=== PATIENT | male | born 1975 ===

== ENCOUNTER 2016-12-19 17:25 | Emergency (ER) | payer MEDICAID ==
[2016-12-19 17:26] VITALS: BMI 27.8
[2016-12-19 17:59] VITALS: RESP 20
[2016-12-19] MEDS ORDERED: Sodium Chloride 0.9% 1,000 ML IV ONE (19:35)
--- NOTE | 2016-12-19 19:38 | C.PDOC ---
History Of Present Illness 41 year old male with a history of recurring pancreatitis, presents to the ED with complaints of upper abdominal pain for the past few days. Patient states he was seen in [facility] a week ago for the same complaints and notes he was admitted several months ago for his pancreatitis. He has no other complaints at this time. Time Seen by Provider: 12/19/16 19:29 Chief Complaint (Nursing): Abdominal Pain History Per: Patient History/Exam Limitations: no limitations Onset/Duration Of Symptoms: Days Current Symptoms Are (Timing): Still Present Severity: Mild Radiation Of Pain To:: None Quality Of Discomfort: "Pain" Associated Symptoms: denies: Fever, Nausea, Vomiting Past Medical History Reviewed: Historical Data, Nursing Documentation, Vital Signs Vital Signs: Last Vital Signs Temp 98.7 F 12/19/16 17:56 Pulse 93 H 12/19/16 17:56 Resp 20 12/19/16 17:56 BP 132/93 H 12/19/16 17:56 Pulse Ox 97 12/19/16 22:41 - Medical History PMH: Asthma, Back Problems, Gall Bladder Disease, Pancreatitis, Rheumatoid Arthritis Surgical History: Cholecystectomy, Endoscopy - [facility] Procedures EXCISION OF STOMACH, ENDO, DIAGN (10/28/15) Family History: States: Unknown Family Hx - Social History Hx Tobacco Use: No Hx Alcohol Use: No Hx Substance Use: Yes (GLADSI KATTY Q OTHER WEEK.) - Immunization History Hx Tetanus Toxoid Vaccination: No Hx Influenza Vaccination: Yes Hx Pneumococcal Vaccination: Yes Review Of Systems Except As Marked, All Systems Reviewed And Found Negative. Constitutional: Negative for: Fever, Chills Cardiovascular: Negative for: Chest Pain Respiratory: Negative for: Shortness of Breath Gastrointestinal: Positive for: Abdominal Pain. Negative for: Nausea, Vomiting , Diarrhea Genitourinary: Negative for: Dysuria Physical Exam - Physical Exam Appears: Non-toxic, No Acute Distress Skin: Normal Color, Warm, Dry Head: Atraumatic, Normacephalic Eye(s): bilateral: Normal Inspection Oral Mucosa: Moist Chest: Symmetrical, No Deformity Cardiovascular: Rhythm Regular Respiratory: Normal Breath Sounds, No Accessory Muscle Use Gastrointestinal/Abdominal: Soft, Tenderness (+Mild epigastric tenderness), No Distention, No Guarding, No Rebound Extremity: Normal ROM Neurological/Psych: Oriented x3, Normal Speech, Normal Cognition ED Course And Treatment - Laboratory Results Result Diagrams: 12/19/16 19:54 12/19/16 19:54 O2 Sat by Pulse Oximetry: 97 (Room air) Pulse Ox Interpretation: Normal Medical Decision Making Medical Decision Making: Plan: -Blood work -Urinalysis -Toradol -Zofran -IV fluids -Reassess Progress: pt reassessed. ct neg for pancreatitis, shows enterocolitis. labs unremarkable. pt on phon ein nad. stable for dc 1100: case discussed with gi fellow, covering [place]. agrees with outpt f/u Disposition - Disposition Disposition: HOME/ ROUTINE Disposition Time: 22:39 Condition: STABLE Additional Instructions: please followu pw ith your doctor. return to er with worsening symptoms or concerns. Prescriptions: Ciprofloxacin [Cipro] 500 mg PO BID #14 tab metroNIDAZOLE [Flagyl] 500 mg PO TID #21 tab Instructions: Acute Abdominal Pain (ED), Colitis (ED) - Clinical Impression Clinical Impression: Abdominal pain, Colitis - Scribe Statement The provider has reviewed the documentation as recorded by the Scribe Arnol Eller. Provider Attestation: All medical record entries made by the Anthonyibjacky were at my direction and personally dictated by me. I have reviewed the chart and agree that the record accurately reflects my personal performance of the history, physical exam, medical decision making, and the department course for this patient. I have also personally directed, reviewed, and agree with the discharge instructions and disposition.
[2016-12-19] MEDS ORDERED: Sodium Chloride 0.9% 1,000 ML ONE (19:55)
[2016-12-19 20:01] LABS: BASO # 0.1 K/uL (0.0-0.2); BASO % 0.7 % (0.0-2.0); EOS # 0.3 K/uL (0.0-0.7); EOS % 2.6 % (0.0-4.0); HEMATOCRIT 48.6 % (35.0-51.0); LYMPH # 2.2 K/uL (1.0-4.3); MEAN CELL VOLUME 92.8 fL (80.0-94.0); MEAN CORPUSCULAR HEMOGLOBIN 30.4 pg (27.0-31.0); MEAN CORPUSCULAR HGB CONC 32.7 g/dL (33.0-37.0); MEAN PLATELET VOLUME 7.8 fL (7.2-11.7); MONO # 0.5 K/uL (0.0-0.8); MONO % 5.2 % (0.0-10.0); NRBC % 0.1 % (0.0-2.0); RED CELL DISTRIBUTION WIDTH 14.2 % (11.5-14.5); WHITE BLOOD COUNT 10.2 K/uL (4.8-10.8)
[2016-12-19 20:07] LABS: CHLORIDE 97 mmol/L (98-107); POTASSIUM 4.1 mmol/L (3.6-5.2); SODIUM 141 mmol/L (132-148)
[2016-12-19 20:09] LABS: ALB/GLOB RATIO 1.2 (1.0-2.1); ALKALINE PHOSPHATASE 79 U/L (38-126); AST/SGOT 25 U/L (17-59); BILIRUBIN,TOTAL 0.6 mg/dL (0.2-1.3); CARBON DIOXIDE 27 mmol/L (22-30); GFR AFRICAN-AMERICAN > 60
[2016-12-19 20:10] LABS: ALT/SGPT 24 U/L (21-72); BLOOD UREA NITROGEN 11 mg/dL (9-20); CALCIUM 9.3 mg/dl (8.6-10.4); GLUCOSE,RANDOM 74 mg/dL (75-110)
[2016-12-19] MEDS ORDERED: Iodixanol 320 MG/ML 100 ML BOTTLE IV ONE ×2 (20:51→21:42)
[2016-12-19 21:49] LABS: RBC URINE 1 /hpf (0-3); TRANSITIONAL EPITHIAL < 1 /hpf (0-3); URINE BACTERIA RARE (<OCC); URINE BILIRUBIN NEGATIVE (NEGATIVE); URINE BLOOD NEGATIVE (NEGATIVE); URINE COLOR Yellow (YELLOW); URINE GLUCOSE (UA) NORMAL (Normal); URINE KETONE TRACE mg/dL (NEGATIVE); URINE LEUKOCYTE ESTERASE NEG Leu/uL (Negative); URINE PROTEIN NEGATIVE (NEGATIVE); URINE UROBILINOGEN NORMAL mg/dL (0.2-1.0); WBC URINE 1 /hpf (0-5)
--- NOTE | 2016-12-19 22:33 | CT ---
EXAM: CT Abdomen and Pelvis With Intravenous Contrast. CLINICAL HISTORY: 41 years old, male; Pain and signs and symptoms; Vomiting; Abdominal pain; Flank; Upper; Additional info: Upper abd pain h/o of pancreatitis TECHNIQUE: Axial computed tomography images of the abdomen and pelvis with intravenous contrast. This CT exam was performed using one or more of the following dose reduction techniques: automated exposure control, adjustment of the mA and/or kV according to patient size, and/or use of iterative reconstruction technique. Coronal and sagittal reformatted images were created and reviewed. CONTRAST: 100 mL of VISIPAQUE 320 administered intravenously. EXAM DATE/TIME: 12/19/2016 8:15 PM COMPARISON: CT - CHEST,ABD,PEL W/IV CONT ONLY 12/03/2015 5:40:48 PM FINDINGS: Lower thorax: Heart size is normal. There is a hiatal hernia. Lung bases are clear There is a small hiatal hernia. ABDOMEN: Liver: unremarkable Gallbladder and bile ducts: Gallbladder is surgically absent. Common bile duct is unremarkable. Pancreas: There is a pancreatic stent. Pancreatic duct is decompressed. No discrete pancreatic masses are identified. There is no peripancreatic inflammation. Spleen: unremarkable Adrenals: unremarkable Kidneys and ureters: There is a left renal cyst.Kidneys and ureters are otherwise unremarkable. Stomach and bowel: Stomach is partially distended with air-fluid levels. Rotation is normal. Proximal and mid small bowel mildly dilated and fluid-filled. There is scattered air fluid levels. There is mild wall and fold thickening. Distention decreases distally. There is fluid in distal small bowel. Terminal ileum is unremarkable. Appendix is unremarkable.Colon is incompletely distended which limits evaluation. There is transverse colon and splenic flexure wall thickening Appendix: See above. PELVIS: Bladder: Bladder is almost completely empty. Reproductive: Seminal vesicles and prostate are unremarkable. ABDOMEN and PELVIS: Intraperitoneal space: There is trace free fluid. There is no free air. Bones/joints: There are degenerative changes in the osseus structures. There is mild wedging T9, T10 and T11, unchanged. Soft tissues: unremarkable Vasculature: There are vascular calcifications. Lymph nodes: There is no pathologic adenopathy. IMPRESSION: Cholecystectomy, no ductal dilatation; pancreatic stent with no pancreatic ductal dilatation; enterocolitis; trace fluid in the pelvis
[2016-12-19 23:34] VITALS: BP 132/70; PULSE 90; TEMP 97.8; O2SAT 98
== END 2016-12-19 23:33 | disposition home or self-care (01) ==
LOC: C.ER 17:25
DX: K52.9 Noninfective gastroenteritis and colitis, unspecified (principal)
CPT/HCPCS: 74177; 80053; 81001; 83690; 85025; 85610; 85730; 96361; 96374; 96375; 99285; J1885; J2405; J7040; Q9967

== ENCOUNTER 2016-12-25 17:11 | Emergency (ER) | payer MEDICAID ==
[2016-12-25 17:11] VITALS: BMI 27.8
[2016-12-25 17:36] VITALS: PULSE 62; RESP 18
[2016-12-25] MEDS ORDERED: Sodium Chloride 0.9% 1,000 ML IV ONE (19:46)
--- NOTE | 2016-12-25 19:54 | C.PDOC ---
History Of Present Illness 41 y/o male presents to the ED with complains of epigastric pain. Pt was referred to ED by PMD. Pt history of pancreatitis due to pancreas divisum. Pt was evaluated at [facility] yesterday for the same with normal workup and lipase. Pt denies fever, chills, vomiting, diarrhea, chest pain or any other complaints. Time Seen by Provider: 12/25/16 19:39 Chief Complaint (Nursing): Abdominal Pain History Per: Patient History/Exam Limitations: no limitations Onset/Duration Of Symptoms: Days Current Symptoms Are (Timing): Still Present Severity: Mild Location Of Pain/Discomfort: Epigastric Radiation Of Pain To:: None Quality Of Discomfort: "Pain" Associated Symptoms: denies: Fever, Chills, Nausea, Vomiting, Diarrhea, Chest Pain Exacerbating Factors: None Alleviating Factors: None Recent travel outside of the [place]: No Past Medical History Reviewed: Historical Data, Nursing Documentation, Vital Signs Vital Signs: Last Vital Signs Temp 98.5 F 12/25/16 17:32 Pulse 62 12/25/16 17:32 Resp 18 12/25/16 17:32 BP 111/79 12/25/16 17:32 Pulse Ox 98 12/25/16 19:57 - Medical History PMH: Asthma, Back Problems, Gall Bladder Disease, Pancreatitis, Rheumatoid Arthritis Surgical History: Cholecystectomy, Endoscopy - [facility] Procedures EXCISION OF STOMACH, ENDO, DIAGN (10/28/15) Family History: States: Unknown Family Hx - Social History Hx Tobacco Use: No Hx Alcohol Use: No Hx Substance Use: Yes (GLADIS KATTY Q OTHER WEEK.) - Immunization History Hx Tetanus Toxoid Vaccination: No Hx Influenza Vaccination: Yes Hx Pneumococcal Vaccination: Yes Review Of Systems Except As Marked, All Systems Reviewed And Found Negative. Constitutional: Negative for: Fever, Chills Cardiovascular: Negative for: Chest Pain Gastrointestinal: Positive for: Abdominal Pain. Negative for: Nausea, Vomiting , Diarrhea Physical Exam - Physical Exam Appears: Non-toxic, No Acute Distress Skin: Warm, Dry, No Rash Head: Atraumatic, Normacephalic Neck: Normal ROM Chest: Symmetrical Cardiovascular: Rhythm Regular, No Murmur Respiratory: Normal Breath Sounds, No Rales, No Rhonchi, No Wheezing Gastrointestinal/Abdominal: Normal Exam, Soft, No Tenderness, No Guarding, No Rebound Extremity: Bilateral: Atraumatic Neurological/Psych: Oriented x3 ED Course And Treatment - Laboratory Results Result Diagrams: 12/25/16 20:29 12/25/16 20:29 Lab Interpretation: Normal (lipase nl (yesterday, too)) O2 Sat by Pulse Oximetry: 98 (on room air) Pulse Ox Interpretation: Normal - Radiology CXR: Interpreted by Me CXR Interpretation: Yes: No Acute Disease - Other Rad abd x 2 X-Ray: Interpreted by Me (+FOS) Medical Decision Making Medical Decision Making: NO pancreatitis + constipation (NOT c/w pt's story of 3 loose stools daily) laxative, diet/exercise educated NO admission criteria opt f/u with GI Disposition Doctor Will See Patient In The: Office Counseled Patient/Family Regarding: Studies Performed, Diagnosis - Disposition Disposition: HOME/ ROUTINE Disposition Time: 20:52 Condition: GOOD - Clinical Impression Clinical Impression: Abdominal colic - Scribe Statement The provider has reviewed the documentation as recorded by the Rose Vaughan Provider Attestation: All medical record entries made by the Rose were at my direction and personally dictated by me. I have reviewed the chart and agree that the record accurately reflects my personal performance of the history, physical exam, medical decision making, and the department course for this patient. I have also personally directed, reviewed, and agree with the discharge instructions and disposition.
[2016-12-25] MEDS ORDERED: Sodium Chloride 0.9% 1,000 ML ONE (20:15)
[2016-12-25 20:38] LABS: BASO # 0.1 K/uL (0.0-0.2); BASO % 0.7 % (0.0-2.0); EOS # 0.4 K/uL (0.0-0.7); EOS % 4.5 % (0.0-4.0); LYMPH # 2.5 K/uL (1.0-4.3); LYMPH % 30.6 % (20.0-40.0); MEAN CELL VOLUME 93.2 fL (80.0-94.0); MEAN CORPUSCULAR HEMOGLOBIN 30.5 pg (27.0-31.0); MEAN CORPUSCULAR HGB CONC 32.7 g/dL (33.0-37.0); MEAN PLATELET VOLUME 7.8 fL (7.2-11.7); MONO # 0.6 K/uL (0.0-0.8); MONO % 6.9 % (0.0-10.0); NRBC % 0.1 % (0.0-2.0); WHITE BLOOD COUNT 8.1 K/uL (4.8-10.8)
[2016-12-25 20:43] LABS: CHLORIDE 100 mmol/L (98-107); SODIUM 141 mmol/L (132-148)
[2016-12-25 20:45] LABS: BILIRUBIN,TOTAL 0.3 mg/dL (0.2-1.3); CARBON DIOXIDE 26 mmol/L (22-30); GFR AFRICAN-AMERICAN > 60
[2016-12-25 20:46] LABS: ALB/GLOB RATIO 1.2 (1.0-2.1); ALKALINE PHOSPHATASE 73 U/L (38-126); ALT/SGPT 19 U/L (21-72); AST/SGOT 27 U/L (17-59); BLOOD UREA NITROGEN 13 mg/dL (9-20); CALCIUM 8.9 mg/dl (8.6-10.4); GLUCOSE,RANDOM 73 mg/dL (75-110); TOTAL PROTEIN 7.1 g/dL (6.3-8.3)
[2016-12-25 21:07] VITALS: BP 118/73; TEMP 97.9; O2SAT 100
--- NOTE | 2016-12-26 08:55 | RAD ---
Abdomen four views History: Abdominal pain. Comparison: None available. Findings: Lung borjas are clear. Minimal blunting of the bilateral costophrenic angles. Heart size within normal limits. Surgical clips within the right upper abdomen. Internal drain projects over the midline upper to mid abdomen. Moderate fecal retention in the colon. Few mildly dilated loops of small bowel in the right lower and upper abdomen. Impression: Few mildly dilated loops of small bowel seen within the right lower and upper abdomen. This may represent a developing and or partial small bowel obstruction. Clinical correlation.
== END 2016-12-25 21:20 | disposition home or self-care (01) ==
LOC: C.ER 17:11
DX: R10.84 Generalized abdominal pain (principal)
CPT/HCPCS: 74022; 80053; 83690; 85025; 96361; 96374; 96375; 99284; J2405; J7040

== ENCOUNTER 2016-12-29 10:22 | Inpatient (IN) | payer MEDICAID ==
[2016-12-29 10:22] VITALS: BMI 27.8
[2016-12-29] MEDS ORDERED: Sodium Chloride 0.9% 1,000 ML IV STA (11:25)
[2016-12-29] MEDS ORDERED: Iohexol 240 (50 ml) PO STA (11:25)
[2016-12-29] MEDS ORDERED: Sodium Chloride 0.9% 1,000 ML ONE (11:38)
[2016-12-29] MEDS ORDERED: Iohexol 240 (50 ml) ONE (11:38)
[2016-12-29 11:40] LABS: BASO % 0.5 % (0.0-2.0); EOS # 0.4 K/uL (0.0-0.7); EOS % 5.7 % (0.0-4.0); HEMATOCRIT 50.8 % (35.0-51.0); LYMPH # 2.3 K/uL (1.0-4.3); LYMPH % 32.3 % (20.0-40.0); MEAN CELL VOLUME 92.1 fL (80.0-94.0); MEAN CORPUSCULAR HGB CONC 32.5 g/dL (33.0-37.0); MEAN PLATELET VOLUME 8.3 fL (7.2-11.7); MONO # 0.5 K/uL (0.0-0.8); MONO % 6.8 % (0.0-10.0); NRBC % 0.1 % (0.0-2.0); RED CELL DISTRIBUTION WIDTH 13.9 % (11.5-14.5); WHITE BLOOD COUNT 7.3 K/uL (4.8-10.8)
[2016-12-29 11:48] LABS: CHLORIDE 102 mmol/L (98-107); POTASSIUM 3.7 mmol/L (3.6-5.2); SODIUM 139 mmol/L (132-148)
[2016-12-29 11:50] LABS: AMYLASE 250 U/L (30-110)
[2016-12-29 11:51] LABS: ALB/GLOB RATIO 1.2 (1.0-2.1); ALKALINE PHOSPHATASE 75 U/L (38-126); ALT/SGPT 35 U/L (21-72); AST/SGOT 30 U/L (17-59); BILIRUBIN,TOTAL 0.7 mg/dL (0.2-1.3); BLOOD UREA NITROGEN 9 mg/dL (9-20); CARBON DIOXIDE 22 mmol/L (22-30); GFR AFRICAN-AMERICAN > 60; GLUCOSE,RANDOM 78 mg/dL (75-110); TOTAL PROTEIN 7.8 g/dL (6.3-8.3)
[2016-12-29 11:52] LABS: CALCIUM 9.4 mg/dl (8.6-10.4)
[2016-12-29] MEDS ORDERED: Iodixanol 320 MG/ML 100 ML BOTTLE IV ONE (12:53)
--- NOTE | 2016-12-29 13:36 | C.PDOC ---
History Of Present Illness 41 year old male with a history of pancreatitis, presents to the ED after being called back due to abnormal test results. Patient has had abdominal pain for the past 10 days and was seen here on 12/25/16 and had a work up and obstructive series done. The results for the obstructive series were read as a possible early obstruction and he was advised to come back in. Patient notes he still has abdominal pain and vomiting and denies any new symptoms at this time. Time Seen by Provider: 12/29/16 10:53 Chief Complaint (Nursing): Abdominal Pain History Per: Patient History/Exam Limitations: no limitations Onset/Duration Of Symptoms: Days Current Symptoms Are (Timing): Still Present Severity: Mild Radiation Of Pain To:: None Quality Of Discomfort: "Pain" Associated Symptoms: Nausea, Vomiting. denies: Fever, Chills, Diarrhea Past Medical History Reviewed: Historical Data, Nursing Documentation, Vital Signs Vital Signs: Last Vital Signs Temp 98 F 12/29/16 13:53 Pulse 58 L 12/29/16 13:53 Resp 18 12/29/16 13:53 BP 117/79 12/29/16 13:53 Pulse Ox 100 12/29/16 15:09 - Medical History PMH: Asthma, Back Problems, Gall Bladder Disease, Pancreatitis, Rheumatoid Arthritis Surgical History: Cholecystectomy, Endoscopy - [facility] Procedures EXCISION OF STOMACH, ENDO, DIAGN (10/28/15) Family History: States: Unknown Family Hx - Social History Hx Tobacco Use: No Hx Alcohol Use: No Hx Substance Use: Yes (GLADIS KATTY Q OTHER WEEK.) - Immunization History Hx Tetanus Toxoid Vaccination: No Hx Influenza Vaccination: Yes Hx Pneumococcal Vaccination: Yes Review Of Systems Except As Marked, All Systems Reviewed And Found Negative. Constitutional: Negative for: Fever, Chills Gastrointestinal: Positive for: Vomiting, Abdominal Pain. Negative for: Diarrhea Genitourinary: Negative for: Dysuria, Frequency Musculoskeletal: Negative for: Back Pain Physical Exam - Physical Exam Appears: Non-toxic, No Acute Distress Skin: Normal Color, Warm, Dry Head: Atraumatic, Normacephalic Eye(s): bilateral: Normal Inspection Oral Mucosa: Moist Chest: Symmetrical, No Deformity Cardiovascular: Rhythm Regular Respiratory: Normal Breath Sounds, No Accessory Muscle Use Gastrointestinal/Abdominal: Soft, Tenderness (+Periumbilical tenderness), No Distention, Guarding, No Rebound Extremity: Normal ROM Neurological/Psych: Oriented x3, Normal Speech, Normal Cognition ED Course And Treatment - Laboratory Results Result Diagrams: 12/29/16 11:37 12/29/16 11:37 O2 Sat by Pulse Oximetry: 100 (Room air) Pulse Ox Interpretation: Normal - CT Scan/US CT ABD & Pelvis w/contrast Other Rad Studies (CT/US): Read By Radiologist, Radiology Report Reviewed CT/US Interpretation: Accession No. : [id number]. Patient Name / ID : BRIANNA GEORGES / [id number]. Exam Date : 12/29/2016 13:24:16 ( Approved ). Study Comment : Sex / Age : M / 41Y. Creator : Jayro Hernandes MD. Dictator : Jayro Hernandes MD. Vertical Borer : Hardboard Coating Machine Operator : Jayro Hernandes MD. Approver2 : Report Date : 12/29/2016 14:18:13. My Comment : . PROCEDURE: CT Abdomen and Pelvis with contrast. HISTORY: periumbilical pain, vomiting. COMPARISON: 12/19/2016. TECHNIQUE: Contrast dose: This CT exam was performed using one or more of the following dose reduction techniques: Automated exposure control, adjustment of the mA and/or kV according to patient size, and/or use of iterative reconstruction technique. Helical imaging of the abdomen pelvis was performed with sagittal coronal reconstructions. Radiation dose: Total exam DLP = 418 mGy-cm. FINDINGS: LOWER THORAX: Unremarkable. LIVER: Unremarkable. No gross lesion or ductal dilatation. GALLBLADDER AND BILE DUCTS: Status post cholecystectomy. No biliary dilatation. PANCREAS: Unremarkable. No gross lesion or ductal dilatation. Pancreatic stent in place. SPLEEN: Unremarkable. ADRENALS: Unremarkable. No mass. KIDNEYS AND URETERS: Unremarkable. No hydronephrosis. No solid mass. VASCULATURE: Unremarkable. No aortic aneurysm. BOWEL: Unremarkable. No obstruction. No gross mural thickening. Mild distention of small-bowel loops suggesting a mild ileus. APPENDIX: Normal appendix. PERITONEUM: Unremarkable. No free fluid. No free air. LYMPH NODES: Unremarkable. No enlarged lymph nodes. BLADDER: Unremarkable. REPRODUCTIVE: Unremarkable. BONES: No acute fracture. OTHER FINDINGS: None. IMPRESSION: Mild distention of small-bowel loops suggesting a mild ileus. Otherwise no significant interval change. Progress Note: CT ABD Pelvis w/contrast, Blood work, and Urinalysis ordered and reviewed. Patient treated with Protonix, Zofran, and IV fluids. Labs show the patient's lipase level has elevated compared to his last visit. CT ABD & Pelvis does not show obstruction. Patient is still has abdominal pain and unable to tolerate PO intake. Case discussed with Dr. Duran who agreed with plan and admission for pancreatitis. Disposition - Disposition Disposition: HOSPITALIZED Disposition Time: 15:08 Condition: FAIR - Clinical Impression Clinical Impression: Acute on chronic pancreatitis - PA / HIGHWAY ADMINISTRATIVE ENGINEER / Resident Statement MD/DO has reviewed & agrees with the documentation as recorded. - Scribe Statement The provider has reviewed the documentation as recorded by the Scribe Arnol Eller. All medical record entries made by the Scribe were at my direction and personally dictated by me. I have reviewed the chart and agree that the record accurately reflects my personal performance of the history, physical exam, medical decision making, and the department course for this patient. I have also personally directed, reviewed, and agree with the discharge instructions and disposition. Decision To Admit - Pt Status Changed To: Hospital Disposition Of: Inpatient - Admit Certification Admit to Inpatient:: After my assessment, the patient will require hospitalization for at least two midnights. This is because of the severity of symptoms shown, intensity of services needed, and/or the medical risk in this patient being treated as an outpatient. - InPatient: Physician Admission Certification:: Patient will need more than 2 days of hospitalization for pancreatitis. - . Bed Request Type: Regular Admitting Physician: Glenn Duran Patient Diagnosis: Acute on chronic pancreatitis
--- NOTE | 2016-12-29 14:19 | CT ---
PROCEDURE: CT Abdomen and Pelvis with contrast HISTORY: periumbilical pain, vomiting COMPARISON: 12/19/2016. TECHNIQUE: Contrast dose: This CT exam was performed using one or more of the following dose reduction techniques: Automated exposure control, adjustment of the mA and/or kV according to patient size, and/or use of iterative reconstruction technique. Helical imaging of the abdomen pelvis was performed with sagittal coronal reconstructions. Radiation dose: Total exam DLP = 418 mGy-cm. FINDINGS: LOWER THORAX: Unremarkable. LIVER: Unremarkable. No gross lesion or ductal dilatation. GALLBLADDER AND BILE DUCTS: Status post cholecystectomy. No biliary dilatation. PANCREAS: Unremarkable. No gross lesion or ductal dilatation. Pancreatic stent in place. SPLEEN: Unremarkable. ADRENALS: Unremarkable. No mass. KIDNEYS AND URETERS: Unremarkable. No hydronephrosis. No solid mass. VASCULATURE: Unremarkable. No aortic aneurysm. BOWEL: Unremarkable. No obstruction. No gross mural thickening. Mild distention of small-bowel loops suggesting a mild ileus. APPENDIX: Normal appendix. PERITONEUM: Unremarkable. No free fluid. No free air. LYMPH NODES: Unremarkable. No enlarged lymph nodes. BLADDER: Unremarkable. REPRODUCTIVE: Unremarkable. BONES: No acute fracture. OTHER FINDINGS: None. IMPRESSION: Mild distention of small-bowel loops suggesting a mild ileus. Otherwise no significant interval change.
[2016-12-29] MEDS ORDERED: Morphine 4 MG/ML VIAL ONE (14:30)
--- NOTE | 2016-12-29 15:47 | CP.PCM.HP ---
<Rojas Fan - Last Filed: 12/30/16 00:34> History of Present Illness - History of Present Illness History of Present Illness: CC: abdominal pain, nausea/vomiting x10 days HPI: 41yo male with PMHx chronic pancreatitis, pancreas divisum s/p minor papillotomy/sphincterotomy/stent placement 08/2016 (stent removed 08/2016) - presents to the ED after being called back due to abnormal test results. Patient has had abdominal pain for the past 10 days and was seen here on . Finding at that time included an obstructive series with possible early obstruction and he was advised to come back in. Patient notes he still has abdominal pain with vomiting and denies any new symptoms at this time. The pain is sharp and an intensity of 9/10 with throbbing radiation to the back. He notes that eating and drinking worsen the pain and that pain meds and IV fluids typically provide some relief. He received morphine, ondansetron and protonix in the ED which brought his pain down to a 6/10. He admits to headaches, chills , diaphoresis, weakness, sore throat, dysphagia, dysuria, back pain. Denies fevers, dizziness, vision changes, diarrhea, trauma or any other complaints. -PMHx: chronic pancreatitis, pancreas divisum s/p minor papillotomy/ sphincterotomy/stent placement 08/2016 (stent removed 08/2016), gallstones, rheumatoid arthritis, asthma, spinal stenosis (L lower extremity weakness). -PSHx: temporary pancreatic stent placed 12/04/16, partial cholecystectomy 2004, multiple EGDs and ERCPs -Meds: reglan (unsure of dose), zenpep 25,000 PO TID, Albuterol 6.7g 2puff INH Q6H PRN -Allergies: NKDA -SocialHx: Tobacco 2 packs of cigarettes/week x 25 yrs (quit completely 1 month ago). EtOH- 2 L of whiskey per 3days (sober > 1yr). Received percocet from PMD , denies heroin. Smokes marijuana regularly to increase his appetite and used cocaine unknowingly, attributing positive test results to laced marijuana. 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 -FamHx: Uncle-colon cancer in his late 30s; Grandfather- pancreatic cancer in his 70s PMD: Dr. Nelson GI: Dr. Patterson Present on Admission - Present on Admission Any Indicators Present on Admission: No Review of Systems - Constitutional Constitutional: Chills, Excessive Sweating, Headache, Weakness (Left leg) - EENT Eyes: absent: Blind Spots, Blurred Vision, Change in Vision Ears: absent: Decreased Hearing, Ear Discharge Nose/Mouth/Throat: Dysphagia, Sore Throat. absent: Nasal Congestion, Nasal Discharge - Cardiovascular Cardiovascular: absent: Chest Pain, Leg Edema - Respiratory Respiratory: absent: Dyspnea, Hemoptysis - Gastrointestinal Gastrointestinal: As Per HPI, Abdominal Pain, Constipation. absent: Diarrhea - Genitourinary Genitourinary: As Per HPI, Dysuria. absent: Hematuria - Musculoskeletal Musculoskeletal: Muscle Weakness (Left leg) - Neurological Neurological: As Per HPI, Weakness. absent: Dizziness - Psychiatric Psychiatric: absent: Anhedonia, Anxiety, Depression - Hematologic/Lymphatic Hematologic: Easy Bruising. absent: Easy Bleeding, Lymphadenopathy Past Patient History - Infectious Disease Hx of Infectious Diseases: None - Past Medical History & Family History Past Medical History?: Yes - Past Social History Smoking Status: Light Smoker < 10 Cigarettes Daily - CARDIAC Hx Congestive Heart Failure: No Hx Hypercholesterolemia: No Hx Hypertension: No - PULMONARY Hx Asthma: Yes - NEUROLOGICAL Hx Neurological Disorder: Yes HX Cerebrovascular Accident: No Hx Syncope: Yes - HEENT Hx HEENT Problems: Yes Other/Comment: Uses glasses - RENAL Hx Chronic Kidney Disease: No - ENDOCRINE/METABOLIC Hx Hypothyroidism: No - HEMATOLOGICAL/ONCOLOGICAL Hx Human Immunodeficiency Virus (HIV): No - INTEGUMENTARY Hx Dermatological Problems: No - MUSCULOSKELETAL/RHEUMATOLOGICAL Hx Rheumatoid Arthritis: Yes - GASTROINTESTINAL Hx Gall Bladder Disease: Yes Hx Pancreatitis: Yes - GENITOURINARY/GYNECOLOGICAL Hx Genitourinary Disorders: No - PSYCHIATRIC Hx Substance Use: Yes (GLADIS KATTY Q OTHER WEEK.) - SURGICAL HISTORY Hx Cholecystectomy: Yes - ANESTHESIA Hx Anesthesia: Yes Hx Anesthesia Reactions: No Hx Malignant Hyperthermia: No Meds Allergies/Adverse Reactions: Allergies Allergy/AdvReac Type Severity Reaction Status Date / Time No Known Allergies Allergy Verified 12/25/16 17:36 Physical Exam - Additional Findings Additional findings: - Constitutional Appears: Non-toxic, No Acute Distress - Head Exam Head Exam: ATRAUMATIC, NORMOCEPHALIC - Eye Exam Eye Exam: EOMI, PERRL Pupil Exam: PERRL. absent: Miosis, Mydriatic - ENT Exam ENT Exam: Mucous Membranes Moist, Normal Oropharynx - Neck Exam Neck exam: Positive for: Full Rom, Normal Inspection - Respiratory Exam Respiratory Exam: Clear to Auscultation Bilateral. absent: Rales, Rhonchi, Wheezes - Cardiovascular Exam Cardiovascular Exam: RRR, +S1, +S2. absent: Gallop, Rubs - GI/Abdominal Exam GI & Abdominal Exam: Normal Bowel Sounds, Soft, Tenderness (mid epigastric). absent: Distended, Firm, Guarding, Rebound, Rigid Additional comments: negative McBurney's, Rowe's, and Rovsing's signs - Extremities Exam Extremities exam: Positive for: full ROM. Negative for: pedal edema -Left LE numbness / weakness due to spinal stenosis - Neurological Exam Neurological exam: Alert, Oriented x3 - Psychiatric Exam Psychiatric exam: Normal Affect, Normal Mood - Skin Skin Exam: Dry, Intact, Normal Color, Warm Results - Vital Signs Recent Vital Signs: Last Vital Signs Temp 98 F 12/29/16 13:53 Pulse 58 L 12/29/16 13:53 Resp 18 12/29/16 13:53 BP 117/79 12/29/16 13:53 Pulse Ox 100 12/29/16 15:11 - Labs Result Diagrams: 12/29/16 11:37 12/29/16 11:37 Assessment & Plan - Assessment and Plan (Free Text) Assessment: Acute on Chronic pancreatitis -called in for blood work from recent 12/25 visit. -Hx pancreas divisum s/p minor papillotomy/sphincterotomy/stent placement 2015 (stent removed 08/2016) -Consult GI, Dr. Parekh, f/u recs. -Amylase 250 -Lipase 516 -pain control - Morphine 2 mg IVP Q4 PRN -IVF: LR at 200cc/hr -CT abd/pelv w/contrast - Mild distention of small-bowel loops suggesting a mild ileus. Otherwise no significant interval change. -NPO Nausea / Vomiting -Consult GIDr. Parekh, f/u recs. Zofran Inj 4 mg IVP Q6H PRN Monitor am labs Currently electrolytes in balance f/u UDS f/u UA Asthma Currently controlled Pt on Albuterol inhaler at home Continue Albuterol 90mcg 2 puff INH RQ6 PRN Back pain -Lumbar spine MRI from 05/01/15 showed multilevel lumbar disc bulges more prominent at L1-L2 -Resulting L lower extremity numbness/weakness -Percocet at home for pain control currently on hold Prophylactic measure SCD's Protonix 40 mg IVP Q12H [facility] NPO diet - Date & Time Date: 12/30/16 Time: 17:00 <Glenn Duran - Last Filed: 12/30/16 17:58> Results - Vital Signs Recent Vital Signs: Last Vital Signs Temp 98.0 F 12/30/16 07:54 Pulse 56 L 12/30/16 07:54 Resp 20 12/30/16 07:54 BP 100/65 12/30/16 07:54 Pulse Ox 96 12/30/16 07:54 - Labs Result Diagrams: 12/30/16 07:30 12/30/16 07:30 Labs: Laboratory Results - last 24 hr 12/30/16 12/30/16 07:00 07:30 WBC 6.2 RBC 4.66 Hgb 14.1 D Hct 43.1 MCV 92.5 MCH 30.2 MCHC 32.6 L RDW 13.8 Plt Count 236 MPV 7.9 Neut % (Auto) 35.8 L Lymph % (Auto) 51.4 H [place] % (Auto) 5.6 Eos % (Auto) 6.7 H Baso % (Auto) 0.5 Neut # 2.2 Lymph # 3.2 [place] # 0.3 Eos # 0.4 Baso # 0.0 Sodium 139 Potassium 3.8 Chloride 103 Carbon Dioxide 25 Anion Gap 15 BUN 7 L Creatinine 1.1 Est GFR ( Amer) > 60 Est GFR (Non-Af Amer) > 60 Random Glucose 70 L Calcium 8.3 L Phosphorus 3.5 Magnesium 1.9 Total Bilirubin 0.9 AST 21 ALT 25 Alkaline Phosphatase 53 Total Protein 5.5 L Albumin 3.0 L D Globulin 2.5 Albumin/Globulin Ratio 1.2 Amylase 107 Lipase 102 Urine Opiates Screen Positive Urine Methadone Screen Negative Ur Barbiturates Screen Negative Ur Phencyclidine Scrn Negative Ur Amphetamines Screen Negative U Benzodiazepines Scrn Negative U Oth Cocaine Metabols Positive U Cannabinoids Screen Positive Attending/Attestation - Attestation I have personally seen and examined this patient.: Yes I have fully participated in the care of the patient.: Yes I have reviewed all pertinent clinical information: Yes Notes (Text): 12/30/16 17:57 Patient was seen and examined at bedside with the resident at the time of admission Patient complains of abdominal pain Patient also complains of nausea and vomiting We will keep the patient nothing by mouth at this time and start him on IV fluids We'll also start pain medication We will continue patient's home medication including the pancreatic enzymes Discussed the plan of care in detail with the resident and agree with the above history and physical and assessment/plan but the resident
[2016-12-29 16:38] LABS: RBC URINE 1 /hpf (0-3); URINE BILIRUBIN NEGATIVE (NEGATIVE); URINE BLOOD NEGATIVE (NEGATIVE); URINE COLOR Straw (YELLOW); URINE GLUCOSE (UA) NORMAL (Normal); URINE KETONE NEGATIVE (NEGATIVE); URINE LEUKOCYTE ESTERASE NEG Leu/uL (Negative); URINE PROTEIN NEGATIVE (NEGATIVE); URINE UROBILINOGEN NORMAL mg/dL (0.2-1.0)
[2016-12-29] MEDS ORDERED: Albuterol HFA 90 mcg/actuation (8 g) INH PRN (17:11)
[2016-12-29] MEDS ORDERED: Sodium Chloride 0.9% 1,000 ML IV SCH (17:15)
[2016-12-29] MEDS ORDERED: LIPASE/PROTEASE/AMYLASE 4,200 U ECC PO SCH (18:00)
[2016-12-29] MEDS: Lactated Ringer's 1,000 ML IV SCH (18:13)
[2016-12-29 23:43] VITALS: RESP 20; O2SAT 96
[2016-12-30] MEDS: Lactated Ringer's 1,000 ML IV SCH ×5 (00:17→11:30)
--- NOTE | 2016-12-30 07:31 | CP.PCM.CON ---
<Amaya Hernandez - Last Filed: 12/30/16 08:25> History of Present Illness - History of Present Illness History of Present Illness: Gastroenterology Fellow/PGY4 Consult Note 41 year old male with history of chronic Pancreatitis, pancreas divisum, most recent papillotomy and pancreatic duct plastic stent 12/04/2016 and Polysubstance abuse presenting with abdominal pain. He notes supraumbilical abdominal pain for two weeks with progressive worsening. Associated nausea, four episodes of food/bilious vomitus episodes, three episode soft diarrhea. He had five ER visits since 12/12/2016 for evaluation. Admits pain is different than chronic pancreatitis. Evaluated by PCP outpatient with instructed for ER evaluation with completeion of 3 CT A/P, most recent 12/29 and obstructive series 12/25 showing concern for early ileus. Admits to fever and chills. Denies sweats, hematemesis, melena, hematochezia, abdominal distension, bloating, heartburn, reflux, or indigestion. EGD 08/2016 Gastritis, large gastric food residue, normal ampulla, and normal second part of duodenum. No prior colonoscopy. Hkxaoj-Kulen-xnnpa cancer in his late 30s; Grandfather- pancreatic cancer in his 70s Social-quit tobacco 5months-previous 5 cigarettes/day x23 years; quit alcohol one year ago; weekly marijuana use; Percocet- chronic pancreatitis; denies Cocaine and heroin use Surgery-minor papillotomy/sphincterotomy/stent placement 08/2016 confirmed stent removed 08/2016, papillotomy and PD stent 11/2016, cholecystectomy Review of Systems - Review of Systems Review of Systems: A 12-point review of systems negative except for as above Past Patient History - Infectious Disease Hx of Infectious Diseases: None - Past Medical History & Family History Past Medical History?: Yes - Past Social History Smoking Status: Light Smoker < 10 Cigarettes Daily - CARDIAC Hx Congestive Heart Failure: No Hx Hypercholesterolemia: No Hx Hypertension: No - PULMONARY Hx Asthma: Yes - NEUROLOGICAL Hx Neurological Disorder: Yes HX Cerebrovascular Accident: No Hx Syncope: Yes - HEENT Hx HEENT Problems: Yes Other/Comment: Uses glasses - RENAL Hx Chronic Kidney Disease: No - ENDOCRINE/METABOLIC Hx Hypothyroidism: No - HEMATOLOGICAL/ONCOLOGICAL Hx Human Immunodeficiency Virus (HIV): No - INTEGUMENTARY Hx Dermatological Problems: No - MUSCULOSKELETAL/RHEUMATOLOGICAL Hx Rheumatoid Arthritis: Yes - GASTROINTESTINAL Hx Gall Bladder Disease: Yes Hx Pancreatitis: Yes - GENITOURINARY/GYNECOLOGICAL Hx Genitourinary Disorders: No - PSYCHIATRIC Hx Substance Use: Yes (GLADIS ALANIZ Q OTHER WEEK.) - SURGICAL HISTORY Hx Cholecystectomy: Yes - ANESTHESIA Hx Anesthesia: Yes Hx Anesthesia Reactions: No Hx Malignant Hyperthermia: No Meds Allergies/Adverse Reactions: Allergies Allergy/AdvReac Type Severity Reaction Status Date / Time No Known Allergies Allergy Verified 12/25/16 17:36 - Medications Medications: Current Medications Albuterol (Ventolin Hfa 90 Mcg/Actuation (8 G)) 2 puff INH RQ6 PRN PRN Reason: Shortness Of Breath/wheezing Lactated Ringer's (Lactated Ringer's) 1,000 mls @ 200 mls/hr IV .Q5H [facility] Last Admin: 12/30/16 06:05 Dose: 200 mls/hr Morphine Sulfate (Morphine) 2 mg IVP Q4 PRN PRN Reason: Pain, severe (8-10) Last Admin: 12/30/16 00:14 Dose: 2 mg Ondansetron HCl (Zofran Inj) 4 mg IVP Q6H PRN PRN Reason: Nausea/Vomiting Last Admin: 12/30/16 06:04 Dose: 4 mg Pantoprazole Sodium (Protonix Inj) 40 mg IVP Q12H [facility] Last Admin: 12/30/16 05:53 Dose: 40 mg Physical Exam - Constitutional Appears: Non-toxic, No Acute Distress - Head Exam Head Exam: ATRAUMATIC, NORMOCEPHALIC - Eye Exam Eye Exam: EOMI, PERRL Pupil Exam: PERRL. absent: Miosis, Mydriatic - ENT Exam ENT Exam: Mucous Membranes Moist, Normal Oropharynx - Neck Exam Neck exam: Positive for: Full Rom, Normal Inspection - Respiratory Exam Respiratory Exam: Clear to Auscultation Bilateral. absent: Rales, Rhonchi, Wheezes - Cardiovascular Exam Cardiovascular Exam: RRR, +S1, +S2. absent: Gallop, Rubs - GI/Abdominal Exam GI & Abdominal Exam: Normal Bowel Sounds, Soft, Tenderness. absent: Distended, Firm, Guarding, Organomegaly, Rebound, Rigid Additional comments: supraumbilical tenderness to palpation, no epigastric pain - Extremities Exam Extremities exam: Positive for: full ROM. Negative for: pedal edema - Neurological Exam Neurological exam: Alert, Oriented x3 - Psychiatric Exam Psychiatric exam: Normal Affect, Normal Mood - Skin Skin Exam: Dry, Intact, Normal Color, Warm Results - Vital Signs Recent Vital Signs: Last Vital Signs Temp 988.3 F H 12/29/16 23:38 Pulse 20 L 12/29/16 23:38 Resp 20 12/29/16 23:38 BP 107/67 12/29/16 23:38 Pulse Ox 96 12/29/16 23:38 - Labs Result Diagrams: 12/30/16 07:30 12/30/16 07:30 Labs: Laboratory Results - last 24 hr 12/29/16 15:59 Urine Color Straw Urine Clarity Clear Urine pH 7.0 Ur Specific [place] 1.021 Urine Protein Negative Urine Glucose (UA) Normal Urine Ketones Negative Urine Blood Negative Urine Nitrate Negative Urine Bilirubin Negative Urine Urobilinogen Normal Ur Leukocyte Esterase Neg Urine RBC (Auto) 1 Assessment & Plan - Assessment and Plan (Free Text) Assessment: 41 year old male with history of chronic Pancreatitis, pancreas divisum, most recent papillotomy and pancreatic duct plastic stent 12/04/2016 and Polysubstance abuse presenting with supraumbilical abdominal pain, vomiting, and diarrhea. Five ER visits since 12/12/2016 with completion of 3 CT A/P, most recent 12/29 and obstructive series 12/25 showing concern for early ileus. EGD 08/2016 Gastritis, large gastric food residue, normal ampulla, and normal second part of duodenum. No prior colonoscopy. Plan: >resolving enteritis with early ileus since 12/12/16 >bowel regimen for constipation >continue supportive care >trial clear liquids >supportive care: IVFs, PPI, pain control >UDS-marijuana, cocaine >continue home medication Pancreaze [id number] TID with meals >PD stent 12/04/16, plan for follow up with Dr. Patterson outpatient for removal <Walt العلي - Last Filed: 12/30/16 09:26> Meds - Medications Medications: Current Medications Albuterol (Ventolin Hfa 90 Mcg/Actuation (8 G)) 2 puff INH RQ6 PRN PRN Reason: Shortness Of Breath/wheezing Lactated Ringer's (Lactated Ringer's) 1,000 mls @ 100 mls/hr IV .Q10H [facility] Last Admin: 12/30/16 08:12 Dose: Not Given Morphine Sulfate (Morphine) 2 mg IVP Q4 PRN PRN Reason: Pain, severe (8-10) Last Admin: 12/30/16 00:14 Dose: 2 mg Ondansetron HCl (Zofran Inj) 4 mg IVP Q6H PRN PRN Reason: Nausea/Vomiting Last Admin: 12/30/16 06:04 Dose: 4 mg Pantoprazole Sodium (Protonix Inj) 40 mg IVP Q12H [facility] Last Admin: 12/30/16 05:53 Dose: 40 mg Polyethylene Glycol (Miralax) 17 gm PO DAILY [facility] Results - Vital Signs Recent Vital Signs: Last Vital Signs Temp 98.0 F 12/30/16 07:54 Pulse 56 L 12/30/16 07:54 Resp 20 12/30/16 07:54 BP 100/65 12/30/16 07:54 Pulse Ox 96 12/30/16 07:54 - Labs Result Diagrams: 12/30/16 07:30 12/30/16 07:30 Labs: Laboratory Results - last 24 hr 12/29/16 12/30/16 12/30/16 15:59 07:00 07:30 WBC 6.2 RBC 4.66 Hgb 14.1 D Hct 43.1 MCV 92.5 MCH 30.2 MCHC 32.6 L RDW 13.8 Plt Count 236 MPV 7.9 Neut % (Auto) 35.8 L Lymph % (Auto) 51.4 H [place] % (Auto) 5.6 Eos % (Auto) 6.7 H Baso % (Auto) 0.5 Neut # 2.2 Lymph # 3.2 [place] # 0.3 Eos # 0.4 Baso # 0.0 Sodium 139 Potassium 3.8 Chloride 103 Carbon Dioxide 25 Anion Gap 15 BUN 7 L Creatinine 1.1 Est GFR ( Amer) > 60 Est GFR (Non-Af Amer) > 60 Random Glucose 70 L Calcium 8.3 L Phosphorus 3.5 Magnesium 1.9 Total Bilirubin 0.9 AST 21 ALT 25 Alkaline Phosphatase 53 Total Protein 5.5 L Albumin 3.0 L D Globulin 2.5 Albumin/Globulin Ratio 1.2 Amylase 107 Lipase 102 Urine Color Straw Urine Clarity Clear Urine pH 7.0 Ur Specific [place] 1.021 Urine Protein Negative Urine Glucose (UA) Normal Urine Ketones Negative Urine Blood Negative Urine Nitrate Negative Urine Bilirubin Negative Urine Urobilinogen Normal Ur Leukocyte Esterase Neg Urine RBC (Auto) 1 Urine Opiates Screen Positive Urine Methadone Screen Negative Ur Barbiturates Screen Negative Ur Phencyclidine Scrn Negative Ur Amphetamines Screen Negative U Benzodiazepines Scrn Negative U Oth Cocaine Metabols Positive U Cannabinoids Screen Positive Attending/Attestation - Attestation I have personally seen and examined this patient.: Yes I have fully participated in the care of the patient.: Yes I have reviewed all pertinent clinical information: Yes Notes (Text): 12/30/16 09:17 I have seen and examined patient with GI fellow. Agree with above documentation with the following additions. In brief, this is a 41 year old male with history of pancreas divisum, chronic pancreatitis, polysubstance abuse who presents to hospital with complaints of abdominal pain. He describes progressive umbilical pain, 5/10 intensity which has gotten progressively worse over past two weeks. He had recent ERCP with papillotomy and stent placement in November 2016. During the past 2 weeks he also reports intermittent nausea with non-bloody emesis and loose bowel movements. He typically has loose bowel movements and is maintained on pancreatic enzyme supplement therapy. Presently he feels well and his abdominal pain has resolved. He denies nausea, vomiting, fever/chills, tolerating PO liquids without difficulty. Chronic pancreatitis, pancreatic divisum Recent ERCP with papillotomy and stent placement Polysubstance abuse Abdominal pain, recent CT imaging reviewed by me showing ileus - Advance diet as tolerated, no clinical features of bowel obstruction - Continue with bowel regimen to prevent constipation - Continue with pancreatic enzyme replacement therapy - Patient has outpatient follow up appointment with Dr. Patterson this upcoming week. From GI perspective, if patient tolerating PO diet can be discharged home with subsequent outpatient follow up.
--- NOTE | 2016-12-30 07:45 | CP.PCM.PN ---
Objective - Vital Signs/Intake and Output Vital Signs (last 24 hours): Temp Pulse Resp BP Pulse Ox 988.3 F H 20 L 20 107/67 96 12/29/16 23:38 12/29/16 23:38 12/29/16 23:38 12/29/16 23:38 12/29/16 23:38 Intake and Output: 12/30/16 12/30/16 06:59 18:59 Intake Total 1600 Output Total 800 Balance 800 - Medications Medications: Current Medications Albuterol (Ventolin Hfa 90 Mcg/Actuation (8 G)) 2 puff INH RQ6 PRN PRN Reason: Shortness Of Breath/wheezing Lactated Ringer's (Lactated Ringer's) 1,000 mls @ 100 mls/hr IV .Q10H [facility] Morphine Sulfate (Morphine) 2 mg IVP Q4 PRN PRN Reason: Pain, severe (8-10) Last Admin: 12/30/16 00:14 Dose: 2 mg Ondansetron HCl (Zofran Inj) 4 mg IVP Q6H PRN PRN Reason: Nausea/Vomiting Last Admin: 12/30/16 06:04 Dose: 4 mg Pantoprazole Sodium (Protonix Inj) 40 mg IVP Q12H [facility] Last Admin: 12/30/16 05:53 Dose: 40 mg Polyethylene Glycol (Miralax) 17 gm PO DAILY [facility] Assessment and Plan - Assessment and Plan (Free Text) Plan: Acute on Chronic pancreatitis -called in for blood work from recent 12/25 visit. -Hx pancreas divisum s/p minor papillotomy/sphincterotomy/stent placement 2015 (stent removed 08/2016) -Consult GI, Dr. Parekh, f/u recs. -Amylase 250 -Lipase 516 -pain control - Morphine 2 mg IVP Q4 PRN -IVF: LR at 200cc/hr -CT abd/pelv w/contrast - Mild distention of small-bowel loops suggesting a mild ileus. Otherwise no significant interval change. -NPO Nausea / Vomiting -Consult GI, Dr. Parekh, f/u recs. Zofran Inj 4 mg IVP Q6H PRN Monitor am labs Currently electrolytes in balance f/u UDS f/u UA Asthma Currently controlled Pt on Albuterol inhaler at home Continue Albuterol 90mcg 2 puff INH RQ6 PRN Back pain -Lumbar spine MRI from 05/01/15 showed multilevel lumbar disc bulges more prominent at L1-L2 -Resulting L lower extremity numbness/weakness -Percocet at home for pain control currently on hold Prophylactic measure SCD's Protonix 40 mg IVP Q12H MARGARITA NPO diet
[2016-12-30 07:52] LABS: BASO % 0.5 % (0.0-2.0); EOS # 0.4 K/uL (0.0-0.7); EOS % 6.7 % (0.0-4.0); HEMATOCRIT 43.1 % (35.0-51.0); LYMPH # 3.2 K/uL (1.0-4.3); LYMPH % 51.4 % (20.0-40.0); MEAN CELL VOLUME 92.5 fL (80.0-94.0); MEAN CORPUSCULAR HEMOGLOBIN 30.2 pg (27.0-31.0); MEAN CORPUSCULAR HGB CONC 32.6 g/dL (33.0-37.0); MEAN PLATELET VOLUME 7.9 fL (7.2-11.7); MONO # 0.3 K/uL (0.0-0.8); MONO % 5.6 % (0.0-10.0); NRBC % 0.1 % (0.0-2.0); RED CELL DISTRIBUTION WIDTH 13.8 % (11.5-14.5); WHITE BLOOD COUNT 6.2 K/uL (4.8-10.8)
[2016-12-30 07:58] VITALS: BP 100/65; PULSE 56; TEMP 98
[2016-12-30 08:00] LABS: CHLORIDE 103 mmol/L (98-107); POTASSIUM 3.8 mmol/L (3.6-5.2); SODIUM 139 mmol/L (132-148)
[2016-12-30 08:02] LABS: AMYLASE 107 U/L (30-110); CARBON DIOXIDE 25 mmol/L (22-30); GFR AFRICAN-AMERICAN > 60
[2016-12-30 08:03] LABS: ALB/GLOB RATIO 1.2 (1.0-2.1); ALKALINE PHOSPHATASE 53 U/L (38-126); ALT/SGPT 25 U/L (21-72); AST/SGOT 21 U/L (17-59); BILIRUBIN,TOTAL 0.9 mg/dL (0.2-1.3); BLOOD UREA NITROGEN 7 mg/dL (9-20); CALCIUM 8.3 mg/dl (8.6-10.4); GLUCOSE,RANDOM 70 mg/dL (75-110); MAGNESIUM 1.9 mg/dL (1.6-2.3); PHOSPHOROUS 3.5 mg/dL (2.5-4.5); TOTAL PROTEIN 5.5 g/dL (6.3-8.3)
[2016-12-30] MEDS: LIPASE/PROTEASE/AMYLASE 4,200 U ECC PO SCH ×2 (08:12→11:29)
[2016-12-30] MEDS ORDERED: POLYETHYLENE GLYCOL 3350 17 GM/Dose PACKET PO SCH (10:00)
--- NOTE | 2016-12-30 13:03 | CP.PCM.DIS ---
<Anushka Polanco - Last Filed: 12/30/16 12:56> Provider - Provider Date of Admission: 12/29/16 15:07 Attending physician: Glenn Duran MD Primary care physician: Dr. Nelson Consults: Dr. Severiano BOYER Time Spent in preparation of Discharge (in minutes): 45 Hospital Course - Lab Results Lab Results: Most Recent Lab Values WBC 6.2 K/uL (4.8-10.8) 12/30/16 07:30 RBC 4.66 Mil/uL (4.40-5.90) 12/30/16 07:30 Hgb 14.1 g/dL (12.0-18.0) D 12/30/16 07:30 Hct 43.1 % (35.0-51.0) 12/30/16 07:30 MCV 92.5 fL (80.0-94.0) 12/30/16 07:30 MCH 30.2 pg (27.0-31.0) 12/30/16 07:30 MCHC 32.6 g/dL (33.0-37.0) L 12/30/16 07:30 RDW 13.8 % (11.5-14.5) 12/30/16 07:30 Plt Count 236 K/uL (130-400) 12/30/16 07:30 MPV 7.9 fL (7.2-11.7) 12/30/16 07:30 Neut % (Auto) 35.8 % (50.0-75.0) L 12/30/16 07:30 Lymph % (Auto) 51.4 % (20.0-40.0) H 12/30/16 07:30 Eaton % (Auto) 5.6 % (0.0-10.0) 12/30/16 07:30 Eos % (Auto) 6.7 % (0.0-4.0) H 12/30/16 07:30 Baso % (Auto) 0.5 % (0.0-2.0) 12/30/16 07:30 Neut # 2.2 K/uL (1.8-7.0) 12/30/16 07:30 Lymph # 3.2 K/uL (1.0-4.3) 12/30/16 07:30 Eaton # 0.3 K/uL (0.0-0.8) 12/30/16 07:30 Eos # 0.4 K/uL (0.0-0.7) 12/30/16 07:30 Baso # 0.0 K/uL (0.0-0.2) 12/30/16 07:30 Sodium 139 mmol/L (132-148) 12/30/16 07:30 Potassium 3.8 mmol/L (3.6-5.2) 12/30/16 07:30 Chloride 103 mmol/L (98-107) 12/30/16 07:30 Carbon Dioxide 25 mmol/L (22-30) 12/30/16 07:30 Anion Gap 15 (10-20) 12/30/16 07:30 BUN 7 mg/dL (9-20) L 12/30/16 07:30 Creatinine 1.1 MG/DL (0.8-1.5) 12/30/16 07:30 Est GFR ( Amer) > 60 12/30/16 07:30 Est GFR (Non-Af Amer) > 60 12/30/16 07:30 Random Glucose 70 mg/dL (75-110) L 12/30/16 07:30 Calcium 8.3 mg/dl (8.6-10.4) L 12/30/16 07:30 Phosphorus 3.5 mg/dL (2.5-4.5) 12/30/16 07:30 Magnesium 1.9 mg/dL (1.6-2.3) 12/30/16 07:30 Total Bilirubin 0.9 mg/dL (0.2-1.3) 12/30/16 07:30 AST 21 U/L (17-59) 12/30/16 07:30 ALT 25 U/L (21-72) 12/30/16 07:30 Alkaline Phosphatase 53 U/L (38-126) 12/30/16 07:30 Total Protein 5.5 g/dL (6.3-8.3) L 12/30/16 07:30 Albumin 3.0 g/dL (3.5-5.0) L D 12/30/16 07:30 Globulin 2.5 gm/dL (2.2-3.9) 12/30/16 07:30 Albumin/Globulin Ratio 1.2 (1.0-2.1) 12/30/16 07:30 Amylase 107 U/L (30-110) 12/30/16 07:30 Lipase 102 U/L (23-300) 12/30/16 07:30 Urine Color Straw (YELLOW) 12/29/16 15:59 Urine Clarity Clear (Clear) 12/29/16 15:59 Urine pH 7.0 (5.0-8.0) 12/29/16 15:59 Ur Specific [place] 1.021 (1.003-1.030) 12/29/16 15:59 Urine Protein Negative mg/dL (NEGATIVE) 12/29/16 15:59 Urine Glucose (UA) Normal mg/dL (Normal) 12/29/16 15:59 Urine Ketones Negative mg/dL (NEGATIVE) 12/29/16 15:59 Urine Blood Negative (NEGATIVE) 12/29/16 15:59 Urine Nitrate Negative (NEGATIVE) 12/29/16 15:59 Urine Bilirubin Negative (NEGATIVE) 12/29/16 15:59 Urine Urobilinogen Normal mg/dL (0.2-1.0) 12/29/16 15:59 Ur Leukocyte Esterase Neg Claribel/uL (Negative) 12/29/16 15:59 Urine RBC (Auto) 1 /hpf (0-3) 12/29/16 15:59 Urine Opiates Screen Positive (NEGATIVE) 12/30/16 07:00 Urine Methadone Screen Negative (NEGATIVE) 12/30/16 07:00 Ur Barbiturates Screen Negative (NEGATIVE) 12/30/16 07:00 Ur Phencyclidine Scrn Negative (NEGATIVE) 12/30/16 07:00 Ur Amphetamines Screen Negative (NEGATIVE) 12/30/16 07:00 U Benzodiazepines Scrn Negative (NEGATIVE) 12/30/16 07:00 U Oth Cocaine Metabols Positive (NEGATIVE) 12/30/16 07:00 U Cannabinoids Screen Positive (NEGATIVE) 12/30/16 07:00 - Hospital Course Hospital Course: Upon Admission: 41yo male with PMHx chronic pancreatitis, pancreas divisum s/p minor papillotomy /sphincterotomy/stent placement 08/2016 (stent removed 08/2016) - presents to the ED after being called back due to abnormal test results. Patient has had abdominal pain for the past 10 days and was seen here on 12/25/16. Finding at that time included an obstructive series with possible early obstruction and he was advised to come back in. Patient notes he still has abdominal pain with vomiting and denies any new symptoms at this time. The pain is sharp and an intensity of 9/10 with throbbing radiation to the back. He notes that eating and drinking worsen the pain and that pain meds and IV fluids typically provide some relief. He received morphine, ondansetron and protonix in the ED which brought his pain down to a 6/10. He admits to headaches, chills, diaphoresis, weakness, sore throat, dysphagia, dysuria, back pain. Denies fevers, dizziness, vision changes, diarrhea, trauma or any other complaints. Patient was admitted to med/surg and GI Dr. العلي was consulted. CT abd/pelvis showed mild ileus and patient was placed on bowel regimen for constipation, a trial of clear liquids, and supportive care withy IVF, PPIs, and pain control. Patient's symptoms improved on day of discharge and after tolerating regular diet patient was deemed stable for discharge as per GI and hospitalist team. 1) Acute on chronic pancreatitis: resolved. Patient to follow up with GI Dr. Patterson within 10 days. 2) Nausea/vomiting: resolved 3) Asthma: continue home medication 4) Back pain: continue home medication 5) Marijuana abuse: patient counseled on abstinence 6) Cocaine abuse: patient counseled on abstinence Upon Discharge: Patient stable for discharge as per Dr. Duran and GI Dr. العلي. Patient to resume all home medications. Patient to follow up with PMD Dr. Nelson within 7 days and to follow up with GI Dr. Patterson within 10days. Patient to abstain from alcohol abuse, encourage hydration, and heart healthy low fat diet. If symptoms persist or worsen patient to visit ED immediately. Instructions discussed in detail with patient who understands and agrees. Please note this is a discharge summary. For full hospital course please refer to medical records Discharge Exam - Head Exam Head Exam: ATRAUMATIC, NORMOCEPHALIC - Eye Exam Eye Exam: Normal appearance. absent: Conjunctival injection, Scleral icterus - ENT Exam ENT Exam: Mucous Membranes Moist - Neck Exam Neck exam: Normal Inspection - Respiratory Exam Respiratory Exam: Clear to PA & Lateral, NORMAL BREATHING PATTERN. absent: Rales, Rhonchi, Wheezes - Cardiovascular Exam Cardiovascular Exam: REGULAR RHYTHM, RRR, +S1, +S2 - GI/Abdominal Exam GI & Abdominal Exam: Normal Bowel Sounds, Soft. absent: Tenderness - Extremities Exam Extremities exam: normal capillary refill, normal inspection, pedal pulses present - Neurological Exam Neurological exam: Alert, Oriented x3 - Psychiatric Exam Psychiatric exam: Normal Affect, Normal Mood - Skin Skin Exam: Dry, Intact, Normal Color, Warm Discharge Plan - Follow Up Plan Condition: FAIR Disposition: HOME/ ROUTINE Instructions: Pancreatitis (DC), Low Fat Diet (DC), Heart Healthy Diet (DC), Acute Nausea and Vomiting (DC), Acute Abdominal Pain (DC) Additional Instructions: Patient stable for discharge as per Dr. Duran and GI Dr. العلي. Patient to resume all home medications. Patient to follow up with PMD Dr. Nelson within 7 days and to follow up with GI Dr. Patterson within 10days. Patient to abstain from alcohol abuse, encourage hydration, and heart healthy low fat diet. If symptoms persist or worsen patient to visit ED immediately. Instructions discussed in detail with patient who understands and agrees. Referrals: Ken Patterson MD [Staff Provider] - <Glenn Duran - Last Filed: 12/30/16 18:06> Provider - Provider Date of Admission: 12/29/16 15:07 Attending physician: Glenn Duran MD Hospital Course - Lab Results Lab Results: Most Recent Lab Values WBC 6.2 K/uL (4.8-10.8) 12/30/16 07:30 RBC 4.66 Mil/uL (4.40-5.90) 12/30/16 07:30 Hgb 14.1 g/dL (12.0-18.0) D 12/30/16 07:30 Hct 43.1 % (35.0-51.0) 12/30/16 07:30 MCV 92.5 fL (80.0-94.0) 12/30/16 07:30 MCH 30.2 pg (27.0-31.0) 12/30/16 07:30 MCHC 32.6 g/dL (33.0-37.0) L 12/30/16 07:30 RDW 13.8 % (11.5-14.5) 12/30/16 07:30 Plt Count 236 K/uL (130-400) 12/30/16 07:30 MPV 7.9 fL (7.2-11.7) 12/30/16 07:30 Neut % (Auto) 35.8 % (50.0-75.0) L 12/30/16 07:30 Lymph % (Auto) 51.4 % (20.0-40.0) H 12/30/16 07:30 E[place] % (Auto) 5.6 % (0.0-10.0) 12/30/16 07:30 Eos % (Auto) 6.7 % (0.0-4.0) H 12/30/16 07:30 Baso % (Auto) 0.5 % (0.0-2.0) 12/30/16 07:30 Neut # 2.2 K/uL (1.8-7.0) 12/30/16 07:30 Lymph # 3.2 K/uL (1.0-4.3) 12/30/16 07:30 Eaton # 0.3 K/uL (0.0-0.8) 12/30/16 07:30 Eos # 0.4 K/uL (0.0-0.7) 12/30/16 07:30 Baso # 0.0 K/uL (0.0-0.2) 12/30/16 07:30 Sodium 139 mmol/L (132-148) 12/30/16 07:30 Potassium 3.8 mmol/L (3.6-5.2) 12/30/16 07:30 Chloride 103 mmol/L (98-107) 12/30/16 07:30 Carbon Dioxide 25 mmol/L (22-30) 12/30/16 07:30 Anion Gap 15 (10-20) 12/30/16 07:30 BUN 7 mg/dL (9-20) L 12/30/16 07:30 Creatinine 1.1 MG/DL (0.8-1.5) 12/30/16 07:30 Est GFR ( Amer) > 60 12/30/16 07:30 Est GFR (Non-Af Amer) > 60 12/30/16 07:30 Random Glucose 70 mg/dL (75-110) L 12/30/16 07:30 Calcium 8.3 mg/dl (8.6-10.4) L 12/30/16 07:30 Phosphorus 3.5 mg/dL (2.5-4.5) 12/30/16 07:30 Magnesium 1.9 mg/dL (1.6-2.3) 12/30/16 07:30 Total Bilirubin 0.9 mg/dL (0.2-1.3) 12/30/16 07:30 AST 21 U/L (17-59) 12/30/16 07:30 ALT 25 U/L (21-72) 12/30/16 07:30 Alkaline Phosphatase 53 U/L (38-126) 12/30/16 07:30 Total Protein 5.5 g/dL (6.3-8.3) L 12/30/16 07:30 Albumin 3.0 g/dL (3.5-5.0) L D 12/30/16 07:30 Globulin 2.5 gm/dL (2.2-3.9) 12/30/16 07:30 Albumin/Globulin Ratio 1.2 (1.0-2.1) 12/30/16 07:30 Amylase 107 U/L (30-110) 12/30/16 07:30 Lipase 102 U/L (23-300) 12/30/16 07:30 Urine Color Straw (YELLOW) 12/29/16 15:59 Urine Clarity Clear (Clear) 12/29/16 15:59 Urine pH 7.0 (5.0-8.0) 12/29/16 15:59 Ur Specific [place] 1.021 (1.003-1.030) 12/29/16 15:59 Urine Protein Negative mg/dL (NEGATIVE) 12/29/16 15:59 Urine Glucose (UA) Normal mg/dL (Normal) 12/29/16 15:59 Urine Ketones Negative mg/dL (NEGATIVE) 12/29/16 15:59 Urine Blood Negative (NEGATIVE) 12/29/16 15:59 Urine Nitrate Negative (NEGATIVE) 12/29/16 15:59 Urine Bilirubin Negative (NEGATIVE) 12/29/16 15:59 Urine Urobilinogen Normal mg/dL (0.2-1.0) 12/29/16 15:59 Ur Leukocyte Esterase Neg Claribel/uL (Negative) 12/29/16 15:59 Urine RBC (Auto) 1 /hpf (0-3) 12/29/16 15:59 Urine Opiates Screen Positive (NEGATIVE) 12/30/16 07:00 Urine Methadone Screen Negative (NEGATIVE) 12/30/16 07:00 Ur Barbiturates Screen Negative (NEGATIVE) 12/30/16 07:00 Ur Phencyclidine Scrn Negative (NEGATIVE) 12/30/16 07:00 Ur Amphetamines Screen Negative (NEGATIVE) 12/30/16 07:00 U Benzodiazepines Scrn Negative (NEGATIVE) 12/30/16 07:00 U Oth Cocaine Metabols Positive (NEGATIVE) 12/30/16 07:00 U Cannabinoids Screen Positive (NEGATIVE) 12/30/16 07:00 Attending/Attestation - Attestation I have personally seen and examined this patient.: Yes I have fully participated in the care of the patient.: Yes I have reviewed all pertinent clinical information, including history, physical exam and plan: Yes Notes (Text): 12/30/16 18:05 Patient was seen and examined at bedside with the resident today Patient is complaining of abdominal pain Patient also states that nausea and vomiting have resolved Patient has tolerated diet and the today GI evaluation seen and appreciated Patient will be discharged to home No need for new prescriptions as patient has the medications at home I discussed the discharge plan with the patient and he verbalized understanding
== END 2016-12-30 14:45 | disposition home or self-care (01) ==
LOC: C.ER 10:22 → C.9E 15:07 → C.3T 15:55
PROVIDERS: ADMIT Internal Medicine; ATTEND Internal Medicine
DX: K85.90 Acute pancreatitis without necrosis or infection, unspecified (principal); K56.7 Ileus, unspecified; F14.10 Cocaine abuse, uncomplicated; F12.10 Cannabis abuse, uncomplicated; J45.909 Unspecified asthma, uncomplicated; M06.9 Rheumatoid arthritis, unspecified; K82.9 Disease of gallbladder, unspecified; K86.1 Other chronic pancreatitis; Z80.0 Family history of malignant neoplasm of digestive organs; F17.211 Nicotine dependence, cigarettes, in remission; F10.10 Alcohol abuse, uncomplicated

== ENCOUNTER 2017-01-03 04:33 | Inpatient (IN) | payer MEDICAID ==
[2017-01-03 04:33] VITALS: BMI 27.8
--- NOTE | 2017-01-03 05:18 | C.PDOC ---
History Of Present Illness 41 year old male with a history of pancreatitis, presents to the ED with complaints of abdominal pain radiating to the back with associated vomiting, diarrhea, and chills. Patient states he had the same symptoms last week and was seen in the ED multiple times with a CT that showed mild ilius. He followed up with his PMD yesterday and was advised to come to the ED if his pain worsens. He has no other complaints at this time. Time Seen by Provider: 01/03/17 04:40 Chief Complaint (Nursing): Abdominal Pain History Per: Patient History/Exam Limitations: no limitations Onset/Duration Of Symptoms: Days Current Symptoms Are (Timing): Still Present Severity: Mild Radiation Of Pain To:: Back Quality Of Discomfort: "Pain" Associated Symptoms: Chills, Vomiting, Diarrhea. denies: Fever Past Medical History Reviewed: Historical Data, Nursing Documentation, Vital Signs Vital Signs: Last Vital Signs Temp 98.2 F 01/03/17 04:46 Pulse 88 01/03/17 04:46 Resp 16 01/03/17 04:46 BP 113/74 01/03/17 04:46 Pulse Ox 98 01/03/17 05:24 - Medical History PMH: Asthma, Back Problems, Gall Bladder Disease, Pancreatitis, Rheumatoid Arthritis Surgical History: Cholecystectomy, Endoscopy - [facility] Procedures EXCISION OF STOMACH, ENDO, DIAGN (10/28/15) Family History: States: Unknown Family Hx - Social History Hx Tobacco Use: No Hx Alcohol Use: No Hx Substance Use: Yes (GLADIS KATTY Q OTHER WEEK.) - Immunization History Hx Tetanus Toxoid Vaccination: No Hx Influenza Vaccination: Yes Hx Pneumococcal Vaccination: Yes Review Of Systems Except As Marked, All Systems Reviewed And Found Negative. Constitutional: Positive for: Chills. Negative for: Fever Cardiovascular: Negative for: Chest Pain Respiratory: Negative for: Shortness of Breath Gastrointestinal: Positive for: Vomiting, Abdominal Pain, Diarrhea Genitourinary: Negative for: Frequency Neurological: Negative for: Weakness, Numbness Physical Exam - Physical Exam Appears: Non-toxic, No Acute Distress Skin: Normal Color, Warm, Dry, No Rash Head: Atraumatic, Normacephalic Eye(s): bilateral: Normal Inspection, PERRL, EOMI Oral Mucosa: Moist Chest: Symmetrical Cardiovascular: Rhythm Regular, No Friction Rub, No Murmur Respiratory: Normal Breath Sounds, No Accessory Muscle Use, No Rales, No Rhonchi , No Stridor, No Wheezing Gastrointestinal/Abdominal: Bowel Sounds (+Normal bowel sounds), Soft, Tenderness (+Mild LUQ tenderness), No Distention, No Guarding, No Rebound Back: No CVA Tenderness, No Vertebral Tenderness, No Paraspinal Tenderness Extremity: Normal ROM, No Tenderness, No Swelling Neurological/Psych: Oriented x3, Normal Speech, Normal Cognition, Normal Motor Gait: Steady ED Course And Treatment - Laboratory Results Result Diagrams: 01/03/17 05:21 01/03/17 05:47 O2 Sat by Pulse Oximetry: 98 (Room air) Pulse Ox Interpretation: Normal Progress Note: On re-exam, the patient remains active and alert, reports improvement of symptoms. Ambulatory in the ED with steady. Lungs remains CTA, heart is RRR, abdomen is soft, non-tender and tolerating PO well. Medical Decision Making Medical Decision Making: Plan: -Blood work -Urinalysis -Morphine -Pepcid -Toradol -Zofran -IV fluids -Reassess Previous records reviewed showing the patient has had frequent visits for abdominal pain secondary to pancreatitis and has had 4 CT scans in the past 2 months. Disposition - Disposition Disposition Time: 07:03 Condition: STABLE - Clinical Impression Clinical Impression: Abdominal discomfort - PA / IT NETWORK ADMINISTRATOR / Resident Statement MD/DO has reviewed & agrees with the documentation as recorded. - Scribe Statement The provider has reviewed the documentation as recorded by the Scribe Arnol Eller. All medical record entries made by the Scribe were at my direction and personally dictated by me. I have reviewed the chart and agree that the record accurately reflects my personal performance of the history, physical exam, medical decision making, and the department course for this patient. I have also personally directed, reviewed, and agree with the discharge instructions and disposition. Physician Patient Turnover Patient Signed Over To: Jaja Mehta Handoff Comments: Pending UA and cxr
[2017-01-03] MEDS ORDERED: Morphine 4 MG/ML VIAL ONE ×2 (05:19→09:37)
[2017-01-03] MEDS ORDERED: Sodium Chloride 0.9% 1,000 ML ONE (05:19)
[2017-01-03 05:25] LABS: BASO # 0.1 K/uL (0.0-0.2); BASO % 0.6 % (0.0-2.0); EOS # 0.3 K/uL (0.0-0.7); EOS % 3.5 % (0.0-4.0); HEMATOCRIT 46.4 % (35.0-51.0); LYMPH # 2.2 K/uL (1.0-4.3); LYMPH % 22.4 % (20.0-40.0); MEAN CELL VOLUME 91.7 fL (80.0-94.0); MEAN CORPUSCULAR HEMOGLOBIN 30.5 pg (27.0-31.0); MEAN CORPUSCULAR HGB CONC 33.2 g/dL (33.0-37.0); MONO # 0.8 K/uL (0.0-0.8); RED CELL DISTRIBUTION WIDTH 13.8 % (11.5-14.5)
[2017-01-03] MEDS: Sodium Chloride 0.9% 1,000 ML IV ONE (05:28)
[2017-01-03 05:58] LABS: CHLORIDE 105 mmol/L (98-107); SODIUM 142 mmol/L (132-148)
[2017-01-03 06:00] LABS: GFR AFRICAN-AMERICAN > 60
[2017-01-03 06:01] LABS: ALKALINE PHOSPHATASE 54 U/L (38-126); ALT/SGPT 23 U/L (21-72); AST/SGOT 16 U/L (17-59); BILIRUBIN,TOTAL 0.2 mg/dL (0.2-1.3); BLOOD UREA NITROGEN 14 mg/dL (9-20); CALCIUM 8.1 mg/dl (8.6-10.4); CARBON DIOXIDE 24 mmol/L (22-30); GLUCOSE,RANDOM 75 mg/dL (75-110)
[2017-01-03 06:23] LABS: ALB/GLOB RATIO 1.2 (1.0-2.1)
[2017-01-03 07:54] LABS: AMYLASE 176 U/L (30-110)
[2017-01-03 08:29] LABS: RBC URINE 1 /hpf (0-3); URINE BILIRUBIN NEGATIVE (NEGATIVE); URINE BLOOD NEGATIVE (NEGATIVE); URINE COLOR Yellow (YELLOW); URINE GLUCOSE (UA) NORMAL (Normal); URINE KETONE NEGATIVE (NEGATIVE); URINE LEUKOCYTE ESTERASE NEG Leu/uL (Negative); URINE PROTEIN NEGATIVE (NEGATIVE); URINE UROBILINOGEN NORMAL mg/dL (0.2-1.0); WBC URINE < 1 /hpf (0-5)
[2017-01-03] MEDS ORDERED: Sodium Chloride 0.9% 1,000 ML IV SCH (09:30)
--- NOTE | 2017-01-03 11:21 | RAD ---
HISTORY: abd pain COMPARISON: Comparison is made to 09/18/2016. FINDINGS: LUNGS: No active pulmonary disease. PLEURA: No significant pleural effusion identified, no pneumothorax apparent. CARDIOVASCULAR: Normal. OSSEOUS STRUCTURES: No significant abnormalities. VISUALIZED UPPER ABDOMEN: Normal. OTHER FINDINGS: None. IMPRESSION: No active disease.
--- NOTE | 2017-01-03 12:01 | CP.PCM.CON ---
<Edward Liriano - Last Filed: 01/03/17 15:38> History of Present Illness - History of Present Illness History of Present Illness: PGY4 GI Fellow Consult Note Patient is a 41yo male with PMHx significant for EtOH abuse (sober since 2004), multisubstance abuse with recent UDS positive for marijuana and cocaine, recurrent/chronic pancreatitis 2/2 pancreas divisum, facial cellulitis, spinal stenosis who presents for complaint of worsening abdominal pain. With regards to his chronic pancreatitis/divisum he recently had minor papillotomy and stent placement in 08/2016 followed by repeat minor papillotomy and stent exchange in November of this year. The patient has chronic pain related to his pancreatitis and was recently admitted for identical complaints this past weekend. Currently , he admits to epigastric stabbing pain (7/10) radiating to the back. Pain is different than his "usual pain" as he describes discomfort in the mid-lower back which seems to be last longer than usual. Admits to nausea with multiple episodes of vomiting. Also admits to recent marijuana use and believes it was laced with cocaine as he denies any intranasal use of cocaine. At this time abdominal pain persists despite morphine and toradol given in the ED. Patient has had 3 CT A/P along with an obstructive series in the past 10 days. PMHx: See HPI PSHx: cholecyctectomy (2004) FHx: Mother - DM, HTN; Maternal grandfather - pancreatic cancer; Paternal ulcer - colon cancer Social: Denies tobacco use (former smoker); prior heavy EtOH abuse - sober since 2004, Recent cocaine/marijuana use Review of Systems - Constitutional Constitutional: Anorexia. absent: Chills, Fever - EENT Eyes: absent: Change in Vision Nose/Mouth/Throat: absent: Sore Throat - Cardiovascular Cardiovascular: absent: Chest Pain, Dyspnea, Palpitations - Respiratory Respiratory: absent: Cough, Dyspnea, Excessive Mucous Production - Gastrointestinal Gastrointestinal: Abdominal Pain - Genitourinary Genitourinary: absent: Dysuria, Urinary Frequency, Urinary Urgency - Musculoskeletal Musculoskeletal: absent: Back Pain, Neck Pain - Integumentary Integumentary: absent: New Lesions, Rash - Neurological Neurological: absent: Dizziness, Numbness, Focal Weakness - Psychiatric Psychiatric: absent: Anxiety, Depression - Endocrine Endocrine: absent: Polydipsia, Polyphagia, Polyuria - Hematologic/Lymphatic Hematologic: absent: Easy Bleeding, Easy Bruising, Lymphadenopathy Past Patient History - Infectious Disease Hx of Infectious Diseases: None - Past Medical History & Family History Past Medical History?: Yes - Past Social History Smoking Status: Light Smoker < 10 Cigarettes Daily - CARDIAC Hx Congestive Heart Failure: No Hx Hypercholesterolemia: No Hx Hypertension: No - PULMONARY Hx Asthma: Yes - NEUROLOGICAL HX Cerebrovascular Accident: No - HEENT Hx HEENT Problems: Yes Other/Comment: Uses glasses - RENAL Hx Chronic Kidney Disease: No - ENDOCRINE/METABOLIC Hx Hypothyroidism: No - HEMATOLOGICAL/ONCOLOGICAL Hx Human Immunodeficiency Virus (HIV): No - INTEGUMENTARY Hx Dermatological Problems: No - MUSCULOSKELETAL/RHEUMATOLOGICAL Hx Rheumatoid Arthritis: Yes - GASTROINTESTINAL Hx Gall Bladder Disease: Yes Hx Pancreatitis: Yes - GENITOURINARY/GYNECOLOGICAL Hx Genitourinary Disorders: No - PSYCHIATRIC Hx Substance Use: Yes (GLADIS ALANIZ Q OTHER WEEK.) - SURGICAL HISTORY Hx Cholecystectomy: Yes - ANESTHESIA Hx Anesthesia: Yes Hx Anesthesia Reactions: No Hx Malignant Hyperthermia: No Meds Allergies/Adverse Reactions: Allergies Allergy/AdvReac Type Severity Reaction Status Date / Time No Known Allergies Allergy Verified 01/03/17 04:54 - Medications Medications: Current Medications Sodium Chloride (Sodium Chloride 0.9%) 1,000 mls @ 200 mls/hr IV .Q5H MARGARITA Sodium Chloride (Sodium Chloride 0.9%) 1,000 mls @ 100 mls/hr IV .Q10H MARGARITA Ondansetron HCl (Zofran Inj) 4 mg IVP Q6 PRN PRN Reason: Nausea/Vomiting Tramadol HCl (Ultram) 50 mg PO TID MARGARITA Results - Vital Signs Recent Vital Signs: Last Vital Signs Temp 97.8 F 01/03/17 11:53 Pulse 82 01/03/17 11:53 Resp 18 01/03/17 11:53 BP 115/75 01/03/17 11:53 Pulse Ox 99 01/03/17 11:53 - Labs Result Diagrams: 01/03/17 05:21 01/03/17 05:47 Assessment & Plan - Assessment and Plan (Free Text) Assessment: Patient is a 41yo male with PMHx significant for EtOH abuse (sober since 2004), multisubstance abuse with recent UDS positive for marijuana and cocaine, recurrent/chronic pancreatitis 2/2 pancreas divisum, facial cellulitis, spinal stenosis who presents for complaint of worsening abdominal pain. -Abdominal pain 2/2 chronic pancreatitis -Multisubstance abuse - recent UDS+ for cocaine/marijuana -Constipation Plan: -Lipase downtrending from prior admission; no need to trend this or amylase -[address] A/P as well as obstructive series reviewed and noted; no need for repeat imaging at this time -Check urine drug screen, acute event may be related to recent marijuana use -Miralax 17g PO QD -IVF as ordered -Analgesia and antiemetics per primary service, encourage avoidance of opiate medications -Advance diet as tolerated -Will monitor clinical course - Date & Time Date: 01/03/17 Time: 12:13 <Ken Patterson - Last Filed: 01/03/17 16:38> Meds - Medications Medications: Current Medications Sodium Chloride (Sodium Chloride 0.9%) 1,000 mls @ 100 mls/hr IV .Q10H [facility] Last Admin: 01/03/17 13:33 Dose: 100 mls/hr Ondansetron HCl (Zofran Inj) 4 mg IVP Q6 PRN PRN Reason: Nausea/Vomiting Polyethylene Glycol (Miralax) 17 gm PO DAILY [facility] Last Admin: 01/03/17 16:27 Dose: 17 gm Tramadol HCl (Ultram) 50 mg PO TID [facility] Last Admin: 01/03/17 15:43 Dose: Not Given Results - Vital Signs Recent Vital Signs: Last Vital Signs Temp 98 F 01/03/17 15:53 Pulse 64 01/03/17 15:53 Resp 20 01/03/17 15:53 BP 120/73 01/03/17 15:53 Pulse Ox 97 01/03/17 15:53 - Labs Result Diagrams: 01/03/17 05:21 01/03/17 05:47 Attending/Attestation - Attestation I have personally seen and examined this patient.: Yes I have fully participated in the care of the patient.: Yes I have reviewed all pertinent clinical information: Yes Notes (Text): 01/03/17 16:36 41 year old male with h/o EtOH abuse, polysubstance abuse, recurrent pancreatitis 2/2 pancreas divisum admitted with abdominal pain. 1. Pancreas divisum 2. Chronic pancreatitis 3. Chronic abdominal pain 4. Chronic constipation Plan: -s/p two ERCPs with minor papillotomy, including ~1 month ago -recommend supportive care -IV hydration -pain control as needed -antiemetics as needed -Miralax 17g daily for constipation -advance diet as tolerated -will schedule for PD stent removal next week
[2017-01-03] MEDS: Sodium Chloride 0.9% 1,000 ML IV SCH (13:33)
[2017-01-03 15:55] VITALS: RESP 20
--- NOTE | 2017-01-03 16:25 | CP.PCM.HP ---
<Reema Horne - Last Filed: 01/03/17 16:16> History of Present Illness - History of Present Illness History of Present Illness: CC: "Stomach pain" HPI: Patient is a 41yo male with PMHx of chronic pancreatitis, pancreas divisum s/p minor papillotomy/sphincterotomy/stent placement 08/2016 (stent removed 2015) followed by repeat minor papillotomy and stent exchange on December 04 of this year at [facility], gallstones, rheumatoid arthritis, asthma, spinal stenosis (L lower extremity weakness), and multisubstance abuse with recent UDS positive for marijuana and cocain presents for complaint of worsening abdominal pain. With regards to his chronic pancreatitis/divisum he recently had minor papillotomy and stent placement in 08/2016 followed by repeat minor papillotomy and stent exchange in November of this year. He states he has been having " problems with my pancrease" for 2 years. He was recenlty hoispitalized and discharged this past weekend for this same complaint. Currently, he admits to epigastric stabbing pain (7/10) radiating to the back. Pain is different than his "usual pain" as he describes discomfort in the mid-lower back which seems to be last longer than usual despite taking pain medications. Admits to nausea with 3 of vomiting yellow in color. Also admits to recent marijuana use and believes it was laced with cocaine as he denies any intranasal use of cocaine. At this time abdominal pain persists despite morphine and toradol given in the ED. Patient has had 3 CT A/P along with an obstructive series in the past 10 days. He was found to have elevated amylase and lipase levels in the emergency room. He admits to fever measured to be 100.8 at home for one day with 2 episodes of watery stool since yesterday. He denies all other complaints such as SOB, chest pain, or palpitations. PMHx: chronic pancreatitis, pancreas divisum s/p minor papillotomy/ sphincterotomy/stent placement 08/2016 (stent removed 08/2016) followed by repeat minor papillotomy and stent exchange on December 04 of this year at [facility] , gallstones, rheumatoid arthritis, asthma, spinal stenosis (L lower extremity weakness). multisubstance abuse with recent UDS positive for marijuana and cocaine, PSHx: temporary pancreatic stent placed 12/04/16, partial cholecystectomy 2004, multiple EGDs and ERCPs Meds: zenpep 25,000 PO TID, Albuterol 6.7g 2puff INH Q6H PRN, tramadol, was on percocet but ran out, Zofran prn Allergies: NKDA SocialHx: Tobacco 2 packs of cigarettes/week x 25 yrs (quit completely 1 month ago). EtOH- 2 L of whiskey per 3days (sober > 1yr) last drink one night ago states he had 1 glass of sangria/wine. Received percocet from PMD but ran out, denies heroin. Smokes marijuana regularly to increase his appetite and used cocaine unknowingly, attributing positive test results to laced marijuana on last admission. 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 Fry GI: Dr. Patterson (Recently referred to a neurologist and perforator per PMD - has not seen yet) Present on Admission - Present on Admission Any Indicators Present on Admission: No Review of Systems - Constitutional Constitutional: Fever. absent: Chills - EENT Eyes: absent: Blurred Vision, Change in Vision Ears: absent: Dizziness - Cardiovascular Cardiovascular: absent: Chest Pain, Chest Pain at Rest, Leg Edema, Palpitations - Respiratory Respiratory: absent: Cough, Dyspnea, Dyspnea on Exertion - Gastrointestinal Gastrointestinal: Abdominal Pain, Diarrhea, Nausea, Vomiting. absent: Constipation - Genitourinary Genitourinary: absent: Change in Urinary Stream, Difficulty Urinating - Musculoskeletal Musculoskeletal: absent: Muscle Weakness, Numbness, Tingling Past Patient History - Infectious Disease Hx of Infectious Diseases: None - Past Medical History & Family History Past Medical History?: Yes - Past Social History Smoking Status: Light Smoker < 10 Cigarettes Daily - CARDIAC Hx Congestive Heart Failure: No Hx Hypercholesterolemia: No Hx Hypertension: No - PULMONARY Hx Asthma: Yes - NEUROLOGICAL HX Cerebrovascular Accident: No - HEENT Hx HEENT Problems: Yes Other/Comment: Uses glasses - RENAL Hx Chronic Kidney Disease: No - ENDOCRINE/METABOLIC Hx Hypothyroidism: No - HEMATOLOGICAL/ONCOLOGICAL Hx Human Immunodeficiency Virus (HIV): No - INTEGUMENTARY Hx Dermatological Problems: No - MUSCULOSKELETAL/RHEUMATOLOGICAL Hx Rheumatoid Arthritis: Yes - GASTROINTESTINAL Hx Gall Bladder Disease: Yes Hx Pancreatitis: Yes - GENITOURINARY/GYNECOLOGICAL Hx Genitourinary Disorders: No - PSYCHIATRIC Hx Substance Use: Yes (GLADIS Jameson OTHER WEEK.) - SURGICAL HISTORY Hx Cholecystectomy: Yes - ANESTHESIA Hx Anesthesia: Yes Hx Anesthesia Reactions: No Hx Malignant Hyperthermia: No Meds Allergies/Adverse Reactions: Allergies Allergy/AdvReac Type Severity Reaction Status Date / Time No Known Allergies Allergy Verified 01/03/17 04:54 Physical Exam - Constitutional Appears: Non-toxic, No Acute Distress - Head Exam Head Exam: ATRAUMATIC, NORMAL INSPECTION - Eye Exam Eye Exam: EOMI, Normal appearance, PERRL Pupil Exam: NORMAL ACCOMODATION - ENT Exam ENT Exam: Mucous Membranes Dry - Respiratory Exam Respiratory Exam: Clear to Auscultation Bilateral, NORMAL BREATHING PATTERN. absent: Accessory Muscle Use, Chest Wall Tenderness, Rales, Rhonchi, Wheezes, Respiratory Distress - Cardiovascular Exam Cardiovascular Exam: REGULAR RHYTHM, +S1, +S2 - GI/Abdominal Exam GI & Abdominal Exam: Normal Bowel Sounds, Soft, Tenderness. absent: Distended, Firm, Guarding, Rebound Additional comments: epigastric and upper quadrants, to palpation - Extremities Exam Extremities exam: Positive for: normal inspection. Negative for: calf tenderness, pedal edema - Back Exam Back exam: NORMAL INSPECTION. absent: CVA tenderness (L), CVA tenderness (R), paraspinal tenderness - Neurological Exam Neurological exam: Alert, CN II-XII Intact, Oriented x3 - Psychiatric Exam Psychiatric exam: Normal Affect, Normal Mood - Skin Skin Exam: Dry, Intact, Normal Color, Warm Results - Vital Signs Recent Vital Signs: Last Vital Signs Temp 98 F 01/03/17 15:53 Pulse 64 01/03/17 15:53 Resp 20 01/03/17 15:53 BP 120/73 01/03/17 15:53 Pulse Ox 97 01/03/17 15:53 - Labs Result Diagrams: 01/03/17 05:21 01/03/17 05:47 Assessment & Plan - Assessment and Plan (Free Text) Assessment: Chronic pancreatitis with N/V and pain Hx pancreas divisum s/p minor papillotomy/sphincterotomy/stent placement 2015 (stent removed 08/2016). New stent placed December 04, 2016. Consult GI, Dr. Patterson f/u recs Amylase 176 Lipase 423 pain control: Ultram 50mg PO TID IVF: NS at 100 cc/hr Zofran Inj 4 mg IVP Q6H PRN Clear liquid diet Patient has had 3 CT A/P along with an obstructive series in the past 10 days - per GI no need for more imaging, as this condition is chronic Miralax 17g PO QD Lipase downtrending from prior admission; no need to trend this or amylase Pancreatic enzymes TIDCC - home med continue f/u am labs Asthma Currently controlled Pt on Albuterol inhaler at home Continue Albuterol 90mcg 2 puff INH RQ6 PRN No signs of exacerbation Hx of Back pain Lumbar spine MRI from 05/01/15 showed multilevel lumbar disc bulges more prominent at L1-L2 Resulting L lower extremity numbness/weakness Percocet at home for pain control currently on hold, avoiding opiates, pain with history of pain med seeking Has been referred to neurologist outpatient No aucte/focal deficits Hx. Polysubstance Abuse f/u UDS + cocaine on last admission Prophylactic measure SCD Protonix 40 mg PO daily Clear liquid diet - can advance as tolerated <Yisel Curtis V - Last Filed: 01/05/17 06:49> Results - Vital Signs Recent Vital Signs: Last Vital Signs Temp 98.4 F 01/04/17 23:20 Pulse 64 01/05/17 02:38 Resp 20 01/04/17 23:20 BP 114/72 01/04/17 23:20 Pulse Ox 95 01/04/17 23:20 - Labs Result Diagrams: 01/04/17 09:38 01/04/17 09:38 Labs: Laboratory Results - last 24 hr 01/05/17 01:16 Urine Color Colorless Urine Clarity Clear Urine pH 8.0 Ur Specific [place] 1.002 L Urine Protein Negative Urine Glucose (UA) Normal Urine Ketones Negative Urine Blood Negative Urine Nitrate Negative Urine Bilirubin Negative Urine Urobilinogen Normal Ur Leukocyte Esterase Neg Attending/Attestation - Attestation I have personally seen and examined this patient.: Yes I have fully participated in the care of the patient.: Yes I have reviewed all pertinent clinical information: Yes Notes (Text): This is late computer entry for 01/03/17. Patient seen, examined, and case discussed with day time resident in [facility] ED bed 15 approximately 11:20AM. Patient with known history of chronic pancreatitis comes in for uncontrolled, exacerbating abdominal pain following visit with PMD: Dr Fry who had spoke with Dr. Patterson (GI) and recommended to come to [facility] for further evaluation. Patient was previously here for the past the weekend. Patient reports he tries Tramadol for pain relief but does not get any. Patient admits prior to, he had a glass of sangria but denies illict drug use currently. Patient comes in for mildly elevated lipase. Patient not ordered for CT scan given he has recently had one and abdomen exam: soft, mildly tender to palpation over upper quadrants , bowel sounds present, negative arteaga's. GI consult; well known to the patient; initial recommendation to have patient follow-up with Dr. Lee, given he has a appointment for next Sunday. No acute intervention at this time. Patient started on IV fluids given he appears dry clinic, Zofran PRN, and Tramadol for pain. Discussed admitting orders with day-time resident.
[2017-01-03] MEDS: POLYETHYLENE GLYCOL 3350 17 GM/Dose PACKET PO SCH (16:27)
[2017-01-03] MEDS: LIPASE/PROTEASE/AMYLASE 4,200 U ECC PO SCH (16:29)
[2017-01-03] MEDS ORDERED: Albuterol 0.083% Inhal Sol (2.5 mg/3 mL) UD INH PRN (16:37)
--- NOTE | 2017-01-04 06:59 | CP.PCM.PN ---
<Edward Liriano - Last Filed: 01/04/17 08:02> Subjective - Date & Time of Evaluation Date of Evaluation: 01/04/17 Time of Evaluation: 06:15 - Subjective Subjective: PGY4 GI Fellow Progress Note Patient seen and examined bedside this morning. The patient is resting comfortably on entry to room. Admits to some epigastric pain, though improved from admission. Denies any bowel movements since admission. No nausea, vomiting. 12 system ROS performed and negative except where stated. Objective - Vital Signs/Intake and Output Vital Signs (last 24 hours): Temp Pulse Resp BP Pulse Ox 98.7 F 69 20 130/86 95 01/03/17 23:15 01/04/17 00:00 01/03/17 23:15 01/03/17 23:15 01/03/17 23:15 Intake and Output: 01/03/17 01/04/17 18:59 06:59 Intake Total 500 Balance 500 - Medications Medications: Current Medications Albuterol Sulfate (Albuterol 0.083% Inhal Shannan (2.5 Mg/3 Ml) Ud) 2.5 mg INH RQ6 PRN PRN Reason: Shortness of Breath Sodium Chloride (Sodium Chloride 0.9%) 1,000 mls @ 100 mls/hr IV .Q10H [facility] Last Admin: 01/03/17 13:33 Dose: 100 mls/hr Ondansetron HCl (Zofran Inj) 4 mg IVP Q6 PRN PRN Reason: Nausea/Vomiting Pantoprazole Sodium (Protonix Ec Tab) 40 mg PO DAILY [facility] Polyethylene Glycol (Miralax) 17 gm PO DAILY [facility] Last Admin: 01/03/17 16:27 Dose: 17 gm Tramadol HCl (Ultram) 50 mg PO TID [facility] Last Admin: 01/03/17 17:12 Dose: 50 mg - Constitutional Appears: Non-toxic, No Acute Distress - Eye Exam Eye Exam: EOMI, PERRL - ENT Exam ENT Exam: Mucous Membranes Moist - Respiratory Exam Respiratory Exam: Clear to Ausculation Bilateral. absent: Rales, Rhonchi, Wheezes - Cardiovascular Exam Cardiovascular Exam: RRR, +S1, +S2 - GI/Abdominal Exam GI & Abdominal Exam: Guarding (voluntary with palpation), Soft, Tenderness ( epigastric/LUQ), Hypoactive Bowel Sounds. absent: Distended, Firm, Rigid, Organomegaly Additional comments: minimal pain with pressure on auscultation, voluntary guarding on palpation - Extremities Exam Extremities Exam: Normal Inspection. absent: Pedal Edema - Neurological Exam Neurological Exam: Alert, Awake, Oriented x3 - Psychiatric Exam Psychiatric exam: Normal Affect, Normal Mood - Skin Skin Exam: Dry, Warm Assessment and Plan - Assessment and Plan (Free Text) Assessment: Patient is a 41yo male with PMHx significant for EtOH abuse (sober since 2004), multisubstance abuse with recent UDS positive for marijuana and cocaine, recurrent/chronic pancreatitis 2/2 pancreas divisum, facial cellulitis, spinal stenosis who presents for complaint of worsening abdominal pain. -Abdominal pain 2/2 chronic pancreatitis -Multisubstance abuse - UDS again positive for cocaine/marijuana -Constipation Plan: -Pain improved -Advance diet to low fat/low fiber - soft diet -UDS positive for marijuana/cocaine - opiates possibly 2/2 morphine given in ED -Discussed cessation of illicit drug use and its relation to pancreatitis -Miralax 17g PO QD -IVF as ordered -Analgesia and antiemetics per primary service, encourage avoidance of opiate medications -Continue to advance diet as tolerated -OK to DC from GI standpoint if tolerating PO <Walt العلي - Last Filed: 01/04/17 08:57> Objective - Vital Signs/Intake and Output Vital Signs (last 24 hours): Temp Pulse Resp BP Pulse Ox 99.5 F 73 20 127/71 96 01/04/17 08:30 01/04/17 08:30 01/04/17 08:30 01/04/17 08:30 01/04/17 08:30 Intake and Output: 01/04/17 01/04/17 06:59 18:59 Intake Total 1040 Balance 1040 - Medications Medications: Current Medications Albuterol Sulfate (Albuterol 0.083% Inhal Shannan (2.5 Mg/3 Ml) Ud) 2.5 mg INH RQ6 PRN PRN Reason: Shortness of Breath Sodium Chloride (Sodium Chloride 0.9%) 1,000 mls @ 100 mls/hr IV .Q10H [facility] Last Admin: 01/03/17 13:33 Dose: 100 mls/hr Ondansetron HCl (Zofran Inj) 4 mg IVP Q6 PRN PRN Reason: Nausea/Vomiting Pantoprazole Sodium (Protonix Ec Tab) 40 mg PO DAILY [facility] Polyethylene Glycol (Miralax) 17 gm PO DAILY [facility] Last Admin: 01/03/17 16:27 Dose: 17 gm Tramadol HCl (Ultram) 50 mg PO TID [facility] Last Admin: 01/03/17 17:12 Dose: 50 mg Attending/Attestation - Attestation I have personally seen and examined this patient.: Yes I have fully participated in the care of the patient.: Yes I have reviewed all pertinent clinical information, including history, physical exam and plan: Yes Notes (Text): 01/04/17 08:55 I have seen and examined patient with GI fellow. No acute events overnight, he continues to endorse mild epigastric abdominal pain but denies nausea, vomiting , diarrhea, fever/chills. Tolerating PO liquids without difficulty. Review of vitals from today are normal. Polysubstance abuse Chronic pancreatitis, pancreatic divisum s/p recent ERCP with papillotomy and stent placement - Advance diet as tolerated - Continue with pancreatic enzyme supplement therapy - Bowel regimen to prevent constipation - Patient given extensive substance abuse counseling - From GI standpoint, if tolerating PO diet ok to discharge home. He has scheduled outpatient follow up ERCP next week with Dr. Patterson for biliary stent removal.
--- NOTE | 2017-01-04 07:44 | CP.PCM.DIS ---
Provider - Provider Date of Admission: 01/03/17 09:28 Attending physician: Yisel Curtis DO Primary care physician: Dr. Fry Consults: Dr. Patterson - GI Time Spent in preparation of Discharge (in minutes): 35 Diagnosis - Discharge Diagnosis (1) Chronic pancreatitis Status: Acute Comment: f/u GI and PCP. Continue home meds. Stop drinking alcohol and using cocaine/marijuana Hospital Course - Lab Results Lab Results: Most Recent Lab Values WBC 10.0 K/uL (4.8-10.8) D 01/03/17 05:21 RBC 5.07 Mil/uL (4.40-5.90) 01/03/17 05:21 Hgb 15.4 g/dL (12.0-18.0) 01/03/17 05:21 Hct 46.4 % (35.0-51.0) 01/03/17 05:21 MCV 91.7 fL (80.0-94.0) 01/03/17 05:21 MCH 30.5 pg (27.0-31.0) 01/03/17 05:21 MCHC 33.2 g/dL (33.0-37.0) 01/03/17 05:21 RDW 13.8 % (11.5-14.5) 01/03/17 05:21 Plt Count 235 K/uL (130-400) 01/03/17 05:21 MPV 8.0 fL (7.2-11.7) 01/03/17 05:21 Neut % (Auto) 65.5 % (50.0-75.0) 01/03/17 05:21 Lymph % (Auto) 22.4 % (20.0-40.0) 01/03/17 05:21 [place] % (Auto) 8.0 % (0.0-10.0) 01/03/17 05:21 Eos % (Auto) 3.5 % (0.0-4.0) 01/03/17 05:21 Baso % (Auto) 0.6 % (0.0-2.0) 01/03/17 05:21 Neut # 6.6 K/uL (1.8-7.0) 01/03/17 05:21 Lymph # 2.2 K/uL (1.0-4.3) 01/03/17 05:21 [place] # 0.8 K/uL (0.0-0.8) 01/03/17 05:21 Eos # 0.3 K/uL (0.0-0.7) 01/03/17 05:21 Baso # 0.1 K/uL (0.0-0.2) 01/03/17 05:21 Sodium 142 mmol/L (132-148) 01/03/17 05:47 Potassium 4.0 mmol/L (3.6-5.2) 01/03/17 05:47 Chloride 105 mmol/L (98-107) 01/03/17 05:47 Carbon Dioxide 24 mmol/L (22-30) 01/03/17 05:47 Anion Gap 18 (10-20) 01/03/17 05:47 BUN 14 mg/dL (9-20) 01/03/17 05:47 Creatinine 0.9 MG/DL (0.8-1.5) 01/03/17 05:47 Est GFR ( Amer) > 60 01/03/17 05:47 Est GFR (Non-Af Amer) > 60 01/03/17 05:47 Random Glucose 75 mg/dL (75-110) 01/03/17 05:47 Calcium 8.1 mg/dl (8.6-10.4) L 01/03/17 05:47 Total Bilirubin 0.2 mg/dL (0.2-1.3) 01/03/17 05:47 AST 16 U/L (17-59) L D 01/03/17 05:47 ALT 23 U/L (21-72) 01/03/17 05:47 Alkaline Phosphatase 54 U/L (38-126) 01/03/17 05:47 Total Protein 6.0 g/dL (6.3-8.3) L 01/03/17 05:47 Albumin 3.3 g/dL (3.5-5.0) L 01/03/17 05:47 Globulin 2.7 gm/dL (2.2-3.9) 01/03/17 05:47 Albumin/Globulin Ratio 1.2 (1.0-2.1) 01/03/17 05:47 Amylase 176 U/L (30-110) H D 01/03/17 05:47 Lipase 423 U/L (23-300) H 01/03/17 05:47 Urine Color Yellow (YELLOW) 01/03/17 08:22 Urine Clarity Clear (Clear) 01/03/17 08:22 Urine pH 7.0 (5.0-8.0) 01/03/17 08:22 Ur Specific [place] 1.018 (1.003-1.030) 01/03/17 08:22 Urine Protein Negative mg/dL (NEGATIVE) 01/03/17 08:22 Urine Glucose (UA) Normal mg/dL (Normal) 01/03/17 08:22 Urine Ketones Negative mg/dL (NEGATIVE) 01/03/17 08:22 Urine Blood Negative (NEGATIVE) 01/03/17 08:22 Urine Nitrate Negative (NEGATIVE) 01/03/17 08:22 Urine Bilirubin Negative (NEGATIVE) 01/03/17 08:22 Urine Urobilinogen Normal mg/dL (0.2-1.0) 01/03/17 08:22 Ur Leukocyte Esterase Neg [place]/uL (Negative) 01/03/17 08:22 Urine WBC (Auto) < 1 /hpf (0-5) 01/03/17 08:22 Urine RBC (Auto) 1 /hpf (0-3) 01/03/17 08:22 Ur Squamous Epith Cells < 1 /hpf (0-5) 01/03/17 08:22 Urine Opiates Screen Positive (NEGATIVE) 01/03/17 18:02 Urine Methadone Screen Negative (NEGATIVE) 01/03/17 18:02 Ur Barbiturates Screen Negative (NEGATIVE) 01/03/17 18:02 Ur Phencyclidine Scrn Negative (NEGATIVE) 01/03/17 18:02 Ur Amphetamines Screen Negative (NEGATIVE) 01/03/17 18:02 U Benzodiazepines Scrn Negative (NEGATIVE) 01/03/17 18:02 U Oth Cocaine Metabols Positive (NEGATIVE) 01/03/17 18:02 U Cannabinoids Screen Positive (NEGATIVE) 01/03/17 18:02 - Hospital Course Hospital Course: PMHx: chronic pancreatitis, pancreas divisum s/p minor papillotomy/ sphincterotomy/stent placement 08/2016 (stent removed 08/2016) followed by repeat minor papillotomy and stent exchange on December 04 of this year at [facility] , gallstones, rheumatoid arthritis, asthma, spinal stenosis (L lower extremity weakness). multisubstance abuse with recent UDS positive for marijuana and cocaine, PSHx: temporary pancreatic stent placed 12/04/16, partial cholecystectomy 2004, multiple EGDs and ERCPs Meds: zenpep 25,000 PO TID, Albuterol 6.7g 2puff INH Q6H PRN, tramadol, was on percocet but ran out, Zofran prn Allergies: NKDA SocialHx: Tobacco 2 packs of cigarettes/week x 25 yrs (quit completely 1 month ago). EtOH- 2 L of whiskey per 3days (sober > 1yr) last drink one night ago states he had 1 glass of sangria/wine. Received percocet from PMD but ran out, denies heroin. Smokes marijuana regularly to increase his appetite and used cocaine unknowingly, attributing positive test results to laced marijuana on last admission. 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 FamHx: Uncle-colon cancer in his late 30s; Grandfather- pancreatic cancer in his 70s PMD: Dr. Fry GI: Dr. Patterson (Recently referred to a neurologist and wheel mill operator per PMD - has not seen yet) On admission: Patient is a 41yo male with PMHx of chronic pancreatitis, pancreas divisum s/p minor papillotomy/sphincterotomy/stent placement 08/2016 (stent removed 08/2016 ) followed by repeat minor papillotomy and stent exchange on December 04 of this year at [facility], gallstones, rheumatoid arthritis, asthma, spinal stenosis (L lower extremity weakness), and multisubstance abuse with recent UDS positive for marijuana and cocain presents for complaint of worsening abdominal pain. With regards to his chronic pancreatitis/divisum he recently had minor papillotomy and stent placement in 08/2016 followed by repeat minor papillotomy and stent exchange in November of this year. He states he has been having " problems with my pancrease" for 2 years. He was recenlty hoispitalized and discharged this past weekend for this same complaint. Currently, he admits to epigastric stabbing pain (7/10) radiating to the back. Pain is different than his "usual pain" as he describes discomfort in the mid-lower back which seems to be last longer than usual despite taking pain medications. Admits to nausea with 3 of vomiting yellow in color. Also admits to recent marijuana use and believes it was laced with cocaine as he denies any intranasal use of cocaine. At this time abdominal pain persists despite morphine and toradol given in the ED. Patient has had 3 CT A/P along with an obstructive series in the past 10 days. He was found to have elevated amylase and lipase levels in the emergency room. He admits to fever measured to be 100.8 at home for one day with 2 episodes of watery stool since yesterday. He denies all other complaints such as SOB, chest pain, or palpitations. During hospital Stay: Patient stable for discharge today per GI Patient is to follow up with his primary care Dr. Fry within one week of discharge. Patient with recent visit the day before he was admitted to the hospital on 01/02. Patient is also to follow up with MERLIN Higgins, for his appointment next Sunday (01/09). Patient is to stop drinking alcohol and using cocaine/marijuana as this could be exacerbating his pain and symptoms. Patient is to resume his home medications. Patient to is return to his Primary care doctor or to the emergency room if his symptoms worsen. All instructions explained to the patient and he agrees. Discharge Exam - Head Exam Head Exam: ATRAUMATIC, NORMAL INSPECTION Discharge Plan - Follow Up Plan Condition: STABLE Disposition: HOME/ ROUTINE Additional Instructions: Patient stable for discharge today per GI Patient is to follow up with his primary care Dr. Fry within one week of discharge. Patient with recent visit the day before he was admitted to the hospital on 01/02. Patient is also to follow up with MERLIN Higgins, for his appointment next Sunday (01/09). Patient is to stop drinking alcohol and using cocaine/marijuana as this could be exacerbating his pain and symptoms. Patient is to resume his home medications. Patient to is return to his Primary care doctor or to the emergency room if his symptoms worsen. All instructions explained to the patient and he agrees.
[2017-01-04] MEDS: LIPASE/PROTEASE/AMYLASE 4,200 U ECC PO SCH ×3 (08:41→18:00)
[2017-01-04 09:54] LABS: BASO # 0.1 K/uL (0.0-0.2); BASO % 0.3 % (0.0-2.0); EOS # 0.1 K/uL (0.0-0.7); EOS % 0.5 % (0.0-4.0); HEMATOCRIT 45.2 % (35.0-51.0); LYMPH # 1.8 K/uL (1.0-4.3); LYMPH % 10.8 % (20.0-40.0); MEAN CELL VOLUME 90.7 fL (80.0-94.0); MEAN CORPUSCULAR HEMOGLOBIN 29.8 pg (27.0-31.0); MEAN CORPUSCULAR HGB CONC 32.8 g/dL (33.0-37.0); MEAN PLATELET VOLUME 8.6 fL (7.2-11.7); MONO # 0.9 K/uL (0.0-0.8); MONO % 5.2 % (0.0-10.0); RED CELL DISTRIBUTION WIDTH 13.4 % (11.5-14.5)
[2017-01-04] MEDS: POLYETHYLENE GLYCOL 3350 17 GM/Dose PACKET PO SCH (09:54)
[2017-01-04] MEDS: Pantoprazole 40 mg EC Tab PO SCH (09:54)
[2017-01-04 09:56] LABS: WHITE BLOOD COUNT 16.7 K/uL (4.8-10.8)
[2017-01-04 10:10] LABS: CHLORIDE 101 mmol/L (98-107)
[2017-01-04 10:11] LABS: SODIUM 135 mmol/L (132-148)
[2017-01-04 10:12] LABS: GFR AFRICAN-AMERICAN > 60
[2017-01-04 10:13] LABS: ALB/GLOB RATIO 1.3 (1.0-2.1); ALKALINE PHOSPHATASE 62 U/L (38-126); ALT/SGPT 24 U/L (21-72); AST/SGOT 27 U/L (17-59); BILIRUBIN,TOTAL 1.5 mg/dL (0.2-1.3); BLOOD UREA NITROGEN 7 mg/dL (9-20); CARBON DIOXIDE 22 mmol/L (22-30); GLUCOSE,RANDOM 90 mg/dL (75-110); TOTAL PROTEIN 7.2 g/dL (6.3-8.3)
[2017-01-04 10:14] LABS: CALCIUM 8.9 mg/dl (8.6-10.4); MAGNESIUM 1.7 mg/dL (1.6-2.3); PHOSPHOROUS 3.3 mg/dL (2.5-4.5)
--- NOTE | 2017-01-04 13:41 | CP.PCM.PN ---
<Reema Horne - Last Filed: 01/04/17 13:36> Subjective - Date & Time of Evaluation Date of Evaluation: 01/04/17 Time of Evaluation: 07:35 - Subjective Subjective: PGY [address] Duran: Patient seen and examined bedside this morning. The patient is resting comfortably in bed. He states his pain is still severe in his epigastric region and that the pain medication does not help. He denies anymore episodes of vomiting. He tolerated liquid diet yesterday. He denies fever chills, diarrhea and states his has not had a BM since being admitted yesterday. He reports that he has "dental issues" and has been giving a referral to have dental work done because he has "decay". He reports bad pain over his jaw on the Left side that he states gives him headaches. He denies all other complaints. Objective - Vital Signs/Intake and Output Vital Signs (last 24 hours): Temp Pulse Resp BP Pulse Ox 99.5 F 73 20 127/71 96 01/04/17 08:30 01/04/17 08:30 01/04/17 08:30 01/04/17 08:30 01/04/17 08:30 Intake and Output: 01/04/17 01/04/17 06:59 18:59 Intake Total 1040 Balance 1040 - Medications Medications: Current Medications Albuterol Sulfate (Albuterol 0.083% Inhal Shannan (2.5 Mg/3 Ml) Ud) 2.5 mg INH RQ6 PRN PRN Reason: Shortness of Breath Enoxaparin Sodium (Lovenox) 40 mg SC DAILY [facility] Sodium Chloride (Sodium Chloride 0.9%) 1,000 mls @ 100 mls/hr IV .Q10H [facility] Last Admin: 01/03/17 13:33 Dose: 100 mls/hr Ondansetron HCl (Zofran Inj) 4 mg IVP Q6 PRN PRN Reason: Nausea/Vomiting Pantoprazole Sodium (Protonix Ec Tab) 40 mg PO DAILY [facility] Last Admin: 01/04/17 09:54 Dose: 40 mg Polyethylene Glycol (Miralax) 17 gm PO DAILY [facility] Last Admin: 01/04/17 09:54 Dose: 17 gm Tramadol HCl (Ultram) 50 mg PO TID PRN PRN Reason: Pain, severe (8-10) - Labs Labs: 01/04/17 09:38 01/04/17 09:38 - Constitutional Appears: Non-toxic, No Acute Distress - Head Exam Head Exam: ATRAUMATIC, NORMAL INSPECTION - Eye Exam Eye Exam: EOMI, Normal appearance, PERRL - ENT Exam ENT Exam: Mucous Membranes Moist - Respiratory Exam Respiratory Exam: Clear to Ausculation Bilateral, NORMAL BREATHING PATTERN. absent: Accessory Muscle Use, Chest Wall Tenderness, Respiratory Distress - Cardiovascular Exam Cardiovascular Exam: REGULAR RHYTHM, +S1, +S2 - GI/Abdominal Exam GI & Abdominal Exam: Soft, Tenderness, Normal Bowel Sounds (epigastric). absent : Distended, Firm, Guarding - Extremities Exam Extremities Exam: Normal Inspection. absent: Calf Tenderness, Full ROM, Pedal Edema - Back Exam Back Exam: NORMAL INSPECTION. absent: CVA tenderness (L), CVA tenderness (R), paraspinal tenderness - Neurological Exam Neurological Exam: Alert, Awake, Oriented x3. absent: CN II-XII Intact Neuro motor strength exam: Left Upper Extremity: 5, Right Upper Extremity: 5, Left Lower Extremity: 5, Right Lower Extremity: 5 - Psychiatric Exam Psychiatric exam: Normal Affect, Normal Mood - Skin Skin Exam: Dry, Intact, Normal Color, Warm Assessment and Plan (1) Chronic pancreatitis Status: Acute - Assessment and Plan (Free Text) Assessment: Leukocytosis WBC = 16.7, was 10 yesterday Temp 99.5 Denied fever/chills If he spkies fever will obtain blood cultures and consider antibiotics UA negative f/u am labs Chronic pancreatitis with N/V and pain - improving Hx pancreas divisum s/p minor papillotomy/sphincterotomy/stent placement 2015 (stent removed 08/2016). New stent placed December 04, 2016. Consult GI, Dr. Patterson f/u recs Amylase 176 Lipase 423 Lipase downtrending from prior admission; no need to trend this or amylase pain control: Ultram 50mg PO TID rpn Diet advanced IVF: NS at 100 cc/hr Zofran Inj 4 mg IVP Q6H PRN Patient has had 3 CT A/P along with an obstructive series in the past 10 days - per GI no need for more imaging, as this condition is chronic Miralax 17g PO QD Pancreatic enzymes TIDCC - home med continue f/u am labs Asthma Currently controlled Pt on Albuterol inhaler at home Continue Albuterol 90mcg 2 puff INH RQ6 PRN No signs of exacerbation Hx of Back pain Lumbar spine MRI from 05/01/15 showed multilevel lumbar disc bulges more prominent at L1-L2 Resulting L lower extremity numbness/weakness Percocet at home for pain control currently on hold, avoiding opiates, pain with history of pain med seeking Has been referred to neurologist outpatient No acute/focal deficits Hx. Polysubstance Abuse f/u UDS + cocaine, cannabinoids, opiates (given morphine in the ED) Avoid Bblock Prophylactic measure Lovenox 40mg SC daily [facility] Protonix 40 mg PO daily Altered/hepatic GI diet <Glenn Duran - Last Filed: 01/04/17 16:27> Objective - Vital Signs/Intake and Output Vital Signs (last 24 hours): Temp Pulse Resp BP Pulse Ox 99.5 F 73 20 127/71 96 01/04/17 08:30 01/04/17 08:30 01/04/17 08:30 01/04/17 08:30 01/04/17 08:30 Intake and Output: 01/04/17 01/04/17 06:59 18:59 Intake Total 1040 Balance 1040 - Medications Medications: Current Medications Albuterol Sulfate (Albuterol 0.083% Inhal Shannan (2.5 Mg/3 Ml) Ud) 2.5 mg INH RQ6 PRN PRN Reason: Shortness of Breath Enoxaparin Sodium (Lovenox) 40 mg SC DAILY [facility] Last Admin: 01/04/17 14:05 Dose: 40 mg Sodium Chloride (Sodium Chloride 0.9%) 1,000 mls @ 100 mls/hr IV .Q10H [facility] Last Admin: 01/03/17 13:33 Dose: 100 mls/hr Piperacillin Sod/Tazobactam (Sod 3.375 gm/ Sodium Chloride) 100 mls @ 200 mls/ hr IVPB Q6H [facility] Ondansetron HCl (Zofran Inj) 4 mg IVP Q6 PRN PRN Reason: Nausea/Vomiting Pantoprazole Sodium (Protonix Ec Tab) 40 mg PO DAILY [facility] Last Admin: 01/04/17 09:54 Dose: 40 mg Polyethylene Glycol (Miralax) 17 gm PO DAILY [facility] Last Admin: 01/04/17 09:54 Dose: 17 gm Tramadol HCl (Ultram) 50 mg PO TID PRN PRN Reason: Pain, severe (8-10) Last Admin: 01/04/17 14:04 Dose: 50 mg - Labs Labs: 01/04/17 09:38 01/04/17 09:38 Attending/Attestation - Attestation I have personally seen and examined this patient.: Yes I have fully participated in the care of the patient.: Yes I have reviewed all pertinent clinical information, including history, physical exam and plan: Yes Notes (Text): 01/04/17 16:26 Patient was seen and examined at bedside with the resident Patient complains of diaphoresis today Subsequently patient was found to have elevated temperature We will obtain urine cultures, blood cultures sent start the patient on IV antibiotics We will need a CT scan of the abdomen and pelvis to rule out any intra- abdominal pathology We will defer the decision to obtain CT scan of the abdomen and pelvis to GI.
[2017-01-04] MEDS: Enoxaparin 40 mg Syringe SC SCH (14:05)
[2017-01-04] MEDS: Piperacillin/Tazobact 3.375 GM in Sodium Chloride 100 ML IVPB SCH ×2 (17:34→21:50)
[2017-01-04] MEDS: Sodium Chloride 0.9% 1,000 ML IV SCH (18:00)
[2017-01-05] MEDS: Sodium Chloride 0.9% 1,000 ML IV ONE (01:00)
[2017-01-05] MEDS: Sodium Chloride 0.9% 1,000 ML IV SCH ×3 (01:00→14:40)
[2017-01-05 01:21] LABS: URINE BILIRUBIN NEGATIVE (NEGATIVE); URINE BLOOD NEGATIVE (NEGATIVE); URINE COLOR Colorless (YELLOW); URINE GLUCOSE (UA) NORMAL (Normal); URINE KETONE NEGATIVE (NEGATIVE); URINE LEUKOCYTE ESTERASE NEG Leu/uL (Negative); URINE PROTEIN NEGATIVE (NEGATIVE); URINE UROBILINOGEN NORMAL mg/dL (0.2-1.0)
[2017-01-05] MEDS: Piperacillin/Tazobact 3.375 GM in Sodium Chloride 100 ML IVPB SCH ×3 (03:26→17:52)
[2017-01-05 08:07] LABS: BASO % 0.4 % (0.0-2.0); EOS # 0.1 K/uL (0.0-0.7); EOS % 1.1 % (0.0-4.0); LYMPH # 1.5 K/uL (1.0-4.3); LYMPH % 16.9 % (20.0-40.0); MEAN CELL VOLUME 91.4 fL (80.0-94.0); MEAN CORPUSCULAR HEMOGLOBIN 30.5 pg (27.0-31.0); MEAN CORPUSCULAR HGB CONC 33.3 g/dL (33.0-37.0); MEAN PLATELET VOLUME 8.2 fL (7.2-11.7); MONO # 0.8 K/uL (0.0-0.8); MONO % 8.3 % (0.0-10.0); NRBC % 0.1 % (0.0-2.0); RED CELL DISTRIBUTION WIDTH 13.4 % (11.5-14.5); WHITE BLOOD COUNT 9.1 K/uL (4.8-10.8)
[2017-01-05 08:19] VITALS: TEMP 98.7
[2017-01-05 08:25] LABS: CHLORIDE 99 mmol/L (98-107); POTASSIUM 3.8 mmol/L (3.6-5.2); SODIUM 138 mmol/L (132-148)
[2017-01-05 08:26] LABS: ALB/GLOB RATIO 1.2 (1.0-2.1); ALKALINE PHOSPHATASE 65 U/L (38-126); AST/SGOT 18 U/L (17-59); BILIRUBIN,TOTAL 0.9 mg/dL (0.2-1.3); CARBON DIOXIDE 24 mmol/L (22-30); GFR AFRICAN-AMERICAN > 60; TOTAL PROTEIN 6.6 g/dL (6.3-8.3)
[2017-01-05 08:27] LABS: ALT/SGPT 26 U/L (21-72); BLOOD UREA NITROGEN 9 mg/dL (9-20); CALCIUM 8.6 mg/dl (8.6-10.4); GLUCOSE,RANDOM 80 mg/dL (75-110); MAGNESIUM 1.9 mg/dL (1.6-2.3); PHOSPHOROUS 3.8 mg/dL (2.5-4.5)
--- NOTE | 2017-01-05 10:07 | CP.PCM.PN ---
<Edward Liriano - Last Filed: 01/05/17 10:04> Subjective - Date & Time of Evaluation Date of Evaluation: 01/05/17 Time of Evaluation: 06:20 - Subjective Subjective: PGY4 GI Fellow Progress Note Patient seen and examined bedside this morning. The patient admits to fever overnight (101F) and diffuse myalgias. Continues to admit to epigastric abdominal pain to back. Admitted to drinking EtOH to primary service on top of known marijuana/cocaine use. Minimal appetite and therefore did not eat much. 12 system ROS performed and negative except where stated. Objective - Vital Signs/Intake and Output Vital Signs (last 24 hours): Temp Pulse Resp BP Pulse Ox 98.7 F 63 20 123/76 95 01/05/17 08:18 01/05/17 08:18 01/05/17 08:18 01/05/17 08:18 01/05/17 08:18 Intake and Output: 01/05/17 01/05/17 06:59 18:59 Intake Total 900 Output Total 800 Balance 100 - Medications Medications: Current Medications Acetaminophen (Tylenol 325mg Tab) 650 mg PO Q6 PRN PRN Reason: Fever >100.4 F Last Admin: 01/04/17 18:04 Dose: 650 mg Albuterol Sulfate (Albuterol 0.083% Inhal Shannan (2.5 Mg/3 Ml) Ud) 2.5 mg INH RQ6 PRN PRN Reason: Shortness of Breath Last Admin: 01/04/17 21:48 Dose: 2.5 mg Enoxaparin Sodium (Lovenox) 40 mg SC DAILY [facility] Last Admin: 01/04/17 14:05 Dose: 40 mg Sodium Chloride (Sodium Chloride 0.9%) 1,000 mls @ 100 mls/hr IV .Q10H [facility] Last Admin: 01/05/17 06:26 Dose: Not Given Piperacillin Sod/Tazobactam (Sod 3.375 gm/ Sodium Chloride) 100 mls @ 200 mls/ hr IVPB Q6H [facility] Last Admin: 01/05/17 03:26 Dose: 200 mls/hr Ondansetron HCl (Zofran Inj) 4 mg IVP Q6 PRN PRN Reason: Nausea/Vomiting Pantoprazole Sodium (Protonix Ec Tab) 40 mg PO DAILY [facility] Last Admin: 01/04/17 09:54 Dose: 40 mg Polyethylene Glycol (Miralax) 17 gm PO DAILY [facility] Last Admin: 01/04/17 09:54 Dose: 17 gm Tramadol HCl (Ultram) 50 mg PO TID PRN PRN Reason: Pain, severe (8-10) Last Admin: 01/05/17 00:43 Dose: 50 mg - Labs Labs: 01/05/17 07:37 01/05/17 07:37 - Constitutional Appears: Non-toxic, No Acute Distress - Eye Exam Eye Exam: EOMI, PERRL - ENT Exam ENT Exam: Mucous Membranes Moist - Respiratory Exam Respiratory Exam: Clear to Ausculation Bilateral. absent: Rales, Rhonchi, Wheezes - Cardiovascular Exam Cardiovascular Exam: RRR, +S1, +S2 - GI/Abdominal Exam GI & Abdominal Exam: Soft, Tenderness (epigastric), Normal Bowel Sounds. absent : Distended, Firm, Guarding, Rigid - Extremities Exam Extremities Exam: Normal Inspection. absent: Pedal Edema - Neurological Exam Neurological Exam: Awake, Oriented x3 - Psychiatric Exam Psychiatric exam: Anxious, Normal Affect - Skin Skin Exam: Dry, Warm Assessment and Plan - Assessment and Plan (Free Text) Assessment: Patient is a 41yo male with PMHx significant for EtOH abuse (sober since 2004), multisubstance abuse with recent UDS positive for marijuana and cocaine, recurrent/chronic pancreatitis 2/2 pancreas divisum, facial cellulitis, spinal stenosis who presents for complaint of worsening abdominal pain. -Abdominal pain 2/2 chronic pancreatitis -Multisubstance abuse - UDS again positive for cocaine/marijuana -Constipation -Fever/transient leukocytosis -Hyperbilirubinemia, resolved Plan: -Check abdominal U/S, rule out biliary obstruction/dilation -Fever overnight, blood/urine cx drawn - WBC and T bili normalized today; on IV zosyn -Counseled on EtOH/Illicit drug abstinence -Miralax increased to 17g PO BID -Analgesia and antiemetics per primary service, encourage avoidance of opiate medications -Diet as tolerated -Appointment scheduled for 01/12/17 for EGD with PD stent removal <Alisha Parekh - Last Filed: 01/05/17 17:02> Objective - Vital Signs/Intake and Output Vital Signs (last 24 hours): Temp Pulse Resp BP Pulse Ox 98.7 F 56 L 20 104/63 96 01/05/17 16:00 01/05/17 16:00 01/05/17 16:00 01/05/17 16:00 01/05/17 16:00 Intake and Output: 01/05/17 01/05/17 06:59 18:59 Intake Total 900 900 Output Total 800 Balance 100 900 - Medications Medications: Current Medications Acetaminophen (Tylenol 325mg Tab) 650 mg PO Q6 PRN PRN Reason: Fever >100.4 F Last Admin: 01/04/17 18:04 Dose: 650 mg Albuterol Sulfate (Albuterol 0.083% Inhal Shannan (2.5 Mg/3 Ml) Ud) 2.5 mg INH RQ6 PRN PRN Reason: Shortness of Breath Last Admin: 01/04/17 21:48 Dose: 2.5 mg Enoxaparin Sodium (Lovenox) 40 mg SC DAILY [facility] Last Admin: 01/05/17 10:18 Dose: 40 mg Sodium Chloride (Sodium Chloride 0.9%) 1,000 mls @ 100 mls/hr IV .Q10H [facility] Last Admin: 01/05/17 14:40 Dose: 100 mls/hr Piperacillin Sod/Tazobactam (Sod 3.375 gm/ Sodium Chloride) 100 mls @ 200 mls/ hr IVPB Q6H [facility] Last Admin: 01/05/17 10:17 Dose: 200 mls/hr Ondansetron HCl (Zofran Inj) 4 mg IVP Q6 PRN PRN Reason: Nausea/Vomiting Last Admin: 01/05/17 10:17 Dose: 4 mg Pantoprazole Sodium (Protonix Ec Tab) 40 mg PO DAILY [facility] Last Admin: 01/05/17 10:18 Dose: 40 mg Polyethylene Glycol (Miralax) 17 gm PO BID [facility] Tramadol HCl (Ultram) 50 mg PO TID PRN PRN Reason: Pain, severe (8-10) Last Admin: 01/05/17 13:11 Dose: 50 mg - Labs Labs: 01/05/17 07:37 01/05/17 07:37 Attending/Attestation - Attestation I have personally seen and examined this patient.: Yes I have fully participated in the care of the patient.: Yes I have reviewed all pertinent clinical information, including history, physical exam and plan: Yes Notes (Text): Patient seen and examined with GI fellow. Agree with his note as documented above with the following additions/exceptions. This is a 41 year old male with h/o ETOH abuse, polysubstance use, chronic pancreatitis with pancreas divisum s/ p sphincterotomy and PD stent placement who is admitted with recurrent abdominal pain. He reports mild pain this morning. Had fever overnight with leukocytosis and mild bili elevation, which have now normalized. Will obtain abdominal sonogram and direct bili. Follow up pancultures. Diet as tolerated. He has appointment for stent removal with Dr. Patterson next week. 01/05/17 17:00
[2017-01-05] MEDS: LIPASE/PROTEASE/AMYLASE 4,200 U ECC PO SCH ×3 (10:10→17:41)
[2017-01-05] MEDS: Enoxaparin 40 mg Syringe SC SCH (10:18)
[2017-01-05] MEDS: Pantoprazole 40 mg EC Tab PO SCH (10:18)
--- NOTE | 2017-01-05 10:56 | CP.PCM.PN ---
Subjective - Date & Time of Evaluation Date of Evaluation: 01/05/17 Time of Evaluation: 07:20 - Subjective Subjective: PGY-[address] Olivo: Patient seen and examined at bedside this morning. The patient states he was feeling fevers and chills last night but does not complain of severe epigastric pain. He denies nausea and vomiting and has been tolerating his diet. He has not had a BM since admission. Denies headache, dizziness, visoin change, chest pain, palpitations, sob, and swelling. Objective - Vital Signs/Intake and Output Vital Signs (last 24 hours): Temp Pulse Resp BP Pulse Ox 98.7 F 63 20 123/76 95 01/05/17 08:18 01/05/17 08:18 01/05/17 08:18 01/05/17 08:18 01/05/17 08:18 Intake and Output: 01/05/17 01/05/17 06:59 18:59 Intake Total 900 Output Total 800 Balance 100 - Medications Medications: Current Medications Acetaminophen (Tylenol 325mg Tab) 650 mg PO Q6 PRN PRN Reason: Fever >100.4 F Last Admin: 01/04/17 18:04 Dose: 650 mg Albuterol Sulfate (Albuterol 0.083% Inhal Shannan (2.5 Mg/3 Ml) Ud) 2.5 mg INH RQ6 PRN PRN Reason: Shortness of Breath Last Admin: 01/04/17 21:48 Dose: 2.5 mg Enoxaparin Sodium (Lovenox) 40 mg SC DAILY [facility] Last Admin: 01/05/17 10:18 Dose: 40 mg Sodium Chloride (Sodium Chloride 0.9%) 1,000 mls @ 100 mls/hr IV .Q10H [facility] Last Admin: 01/05/17 06:26 Dose: Not Given Piperacillin Sod/Tazobactam (Sod 3.375 gm/ Sodium Chloride) 100 mls @ 200 mls/ hr IVPB Q6H [facility] Last Admin: 01/05/17 10:17 Dose: 200 mls/hr Ondansetron HCl (Zofran Inj) 4 mg IVP Q6 PRN PRN Reason: Nausea/Vomiting Last Admin: 01/05/17 10:17 Dose: 4 mg Pantoprazole Sodium (Protonix Ec Tab) 40 mg PO DAILY [facility] Last Admin: 01/05/17 10:18 Dose: 40 mg Polyethylene Glycol (Miralax) 17 gm PO BID [facility] Tramadol HCl (Ultram) 50 mg PO TID PRN PRN Reason: Pain, severe (8-10) Last Admin: 01/05/17 00:43 Dose: 50 mg - Labs Labs: 01/05/17 07:37 01/05/17 07:37 Assessment and Plan (1) Chronic pancreatitis Status: Acute
--- NOTE | 2017-01-05 11:15 | US ---
HISTORY: leukocytosis, elevated T bili COMPARISON: 12/29/2016. CT abdomen and pelvis. TECHNIQUE: Sonographic evaluation of the abdomen. FINDINGS: LIVER: Measures 17.8 cm. Hepatopedal blood flow. Fatty infiltration manifest ultrasonographically as increased echogenicity of the liver parenchyma. No mass. No intrahepatic bile duct dilatation. GALLBLADDER: Status post cholecystectomy. No abnormality is seen in the gallbladder fossa. COMMON BILE DUCT: Measures 6.7 mm. No stones. No dilatation. PANCREAS: Unremarkable as visualized. No mass. No ductal dilatation.Limitations of the current examination: Suboptimal assessment pancreatic body and tail related to overlying bowel gas. RIGHT KIDNEY: Measures 5.3 x 9.4cm. Normal echogenicity. No calculus, mass, or hydronephrosis. LEFT KIDNEY: Measures 5.7 x 9.5cm. Normal echogenicity. No calculus, mass, or hydronephrosis.Incidental finding(s): Simple cyst lower pole 1.3 cm. SPLEEN: Normal in size and contour. No mass. AORTA: No aneurysmal dilatation. IVC: Unremarkable. OTHER FINDINGS: None. IMPRESSION: Hepatic steatosis. No focal hepatic abnormalities.
--- NOTE | 2017-01-05 15:27 | CP.PCM.DIS ---
<Reema Horne - Last Filed: 01/06/17 21:55> Provider - Provider Date of Admission: 01/04/17 16:58 Attending physician: Yisel Curtis DO Primary care physician: Dr. Fry Consults: Dr. Patterson - GI Time Spent in preparation of Discharge (in minutes): 35 Diagnosis - Discharge Diagnosis (1) Chronic pancreatitis Status: Acute Comment: f/u Dr. Patterson and PCP within one week. Cipro x 7 days. Ultram for pain. EGD scheduled next Sunday Hospital Course - Lab Results Lab Results: Most Recent Lab Values WBC 9.1 K/uL (4.8-10.8) 01/05/17 07:37 RBC 4.81 Mil/uL (4.40-5.90) 01/05/17 07:37 Hgb 14.7 g/dL (12.0-18.0) 01/05/17 07:37 Hct 44.0 % (35.0-51.0) 01/05/17 07:37 MCV 91.4 fL (80.0-94.0) 01/05/17 07:37 MCH 30.5 pg (27.0-31.0) 01/05/17 07:37 MCHC 33.3 g/dL (33.0-37.0) 01/05/17 07:37 RDW 13.4 % (11.5-14.5) 01/05/17 07:37 Plt Count 232 K/uL (130-400) 01/05/17 07:37 MPV 8.2 fL (7.2-11.7) 01/05/17 07:37 Neut % (Auto) 73.3 % (50.0-75.0) 01/05/17 07:37 Lymph % (Auto) 16.9 % (20.0-40.0) L 01/05/17 07:37 [place] % (Auto) 8.3 % (0.0-10.0) 01/05/17 07:37 Eos % (Auto) 1.1 % (0.0-4.0) 01/05/17 07:37 Baso % (Auto) 0.4 % (0.0-2.0) 01/05/17 07:37 Neut # 6.6 K/uL (1.8-7.0) 01/05/17 07:37 Lymph # 1.5 K/uL (1.0-4.3) 01/05/17 07:37 [place] # 0.8 K/uL (0.0-0.8) 01/05/17 07:37 Eos # 0.1 K/uL (0.0-0.7) 01/05/17 07:37 Baso # 0.0 K/uL (0.0-0.2) 01/05/17 07:37 Differential Comment 01/04/17 09:38 Sodium 138 mmol/L (132-148) 01/05/17 07:37 Potassium 3.8 mmol/L (3.6-5.2) 01/05/17 07:37 Chloride 99 mmol/L (98-107) 01/05/17 07:37 Carbon Dioxide 24 mmol/L (22-30) 01/05/17 07:37 Anion Gap 18 (10-20) 01/05/17 07:37 BUN 9 mg/dL (9-20) 01/05/17 07:37 Creatinine 0.9 MG/DL (0.8-1.5) 01/05/17 07:37 Est GFR ( Amer) > 60 01/05/17 07:37 Est GFR (Non-Af Amer) > 60 01/05/17 07:37 Random Glucose 80 mg/dL (75-110) 01/05/17 07:37 Calcium 8.6 mg/dl (8.6-10.4) 01/05/17 07:37 Phosphorus 3.8 mg/dL (2.5-4.5) 01/05/17 07:37 Magnesium 1.9 mg/dL (1.6-2.3) 01/05/17 07:37 Total Bilirubin 0.9 mg/dL (0.2-1.3) 01/05/17 07:37 AST 18 U/L (17-59) 01/05/17 07:37 ALT 26 U/L (21-72) 01/05/17 07:37 Alkaline Phosphatase 65 U/L (38-126) 01/05/17 07:37 Total Protein 6.6 g/dL (6.3-8.3) 01/05/17 07:37 Albumin 3.6 g/dL (3.5-5.0) 01/05/17 07:37 Globulin 3.0 gm/dL (2.2-3.9) 01/05/17 07:37 Albumin/Globulin Ratio 1.2 (1.0-2.1) 01/05/17 07:37 Amylase 176 U/L (30-110) H D 01/03/17 05:47 Lipase 253 U/L (23-300) 01/04/17 09:38 Urine Color Colorless (YELLOW) 01/05/17 01:16 Urine Clarity Clear (Clear) 01/05/17 01:16 Urine pH 8.0 (5.0-8.0) 01/05/17 01:16 Ur Specific [place] 1.002 (1.003-1.030) L 01/05/17 01:16 Urine Protein Negative mg/dL (NEGATIVE) 01/05/17 01:16 Urine Glucose (UA) Normal mg/dL (Normal) 01/05/17 01:16 Urine Ketones Negative mg/dL (NEGATIVE) 01/05/17 01:16 Urine Blood Negative (NEGATIVE) 01/05/17 01:16 Urine Nitrate Negative (NEGATIVE) 01/05/17 01:16 Urine Bilirubin Negative (NEGATIVE) 01/05/17 01:16 Urine Urobilinogen Normal mg/dL (0.2-1.0) 01/05/17 01:16 Ur Leukocyte Esterase Neg Claribel/uL (Negative) 01/05/17 01:16 Urine WBC (Auto) < 1 /hpf (0-5) 01/03/17 08:22 Urine RBC (Auto) 1 /hpf (0-3) 01/03/17 08:22 Ur Squamous Epith Cells < 1 /hpf (0-5) 01/03/17 08:22 Urine Opiates Screen Positive (NEGATIVE) 01/03/17 18:02 Urine Methadone Screen Negative (NEGATIVE) 01/03/17 18:02 Ur Barbiturates Screen Negative (NEGATIVE) 01/03/17 18:02 Ur Phencyclidine Scrn Negative (NEGATIVE) 01/03/17 18:02 Ur Amphetamines Screen Negative (NEGATIVE) 01/03/17 18:02 U Benzodiazepines Scrn Negative (NEGATIVE) 01/03/17 18:02 U Oth Cocaine Metabols Positive (NEGATIVE) 01/03/17 18:02 U Cannabinoids Screen Positive (NEGATIVE) 01/03/17 18:02 Influenza Typ A,B (EIA) Negative for flu a/b (NEGATIVE) 01/05/17 Unknown - Hospital Course Hospital Course: On admission: Patient is a 41yo male with PMHx of chronic pancreatitis, pancreas divisum s/p minor papillotomy/sphincterotomy/stent placement 08/2016 ( stent removed 08/2016) followed by repeat minor papillotomy and stent exchange on December 04 of this year at [place], gallstones, rheumatoid arthritis, asthma, spinal stenosis (L lower extremity weakness), and multisubstance abuse with recent UDS positive for marijuana and cocain presents for complaint of worsening abdominal pain. With regards to his chronic pancreatitis/divisum he recently had minor papillotomy and stent placement in 08/2016 followed by repeat minor papillotomy and stent exchange in November of this year. He states he has been having "problems with my pancrease" for 2 years. He was recenlty hoispitalized and discharged this past weekend for this same complaint. Currently, he admits to epigastric stabbing pain (7/10) radiating to the back. Pain is different than his "usual pain" as he describes discomfort in the mid- lower back which seems to be last longer than usual despite taking pain medications. Admits to nausea with 3 of vomiting yellow in color. Also admits to recent marijuana use and believes it was laced with cocaine as he denies any intranasal use of cocaine. At this time abdominal pain persists despite morphine and toradol given in the ED. Patient has had 3 CT A/P along with an obstructive series in the past 10 days. He was found to have elevated amylase and lipase levels in the emergency room. He admits to fever measured to be 100.8 at home for one day with 2 episodes of watery stool since yesterday. He denies all other complaints such as SOB, chest pain, or palpitations. During Hospital Stay: Patient's nausea and vomiting improved during his stay. Gi was consulted and saw the patient. He had an abdominal ultrasound which did not show any acute pathology. Patient was started on a clear liquid diet and tolerated as he was advanced to a full regular diet. He was given Miralax 17g PO QD and Pancreatic enzymes TIDCC. He had an EG scheduled with GI next week. Ultram was given for pain. While in the hospital patient spiked a fever. Zosyn IV was given. Blood cultures were negative and Urine cultures grew out gram positive cocci. Patient was afebrile for 24 hours after starting antibiotics. He was given albuterol prn for his asthma. Patient's UDS came out + for cocaine. He did not admit to cocaine on admission but then after the UDS results reported cocaine use 2 days before admission. Patient stable for discharge today per GI Patient is to follow up with his primary care Dr. Fry within one week of discharge. Patient with recent visit the day before he was admitted to the hospital on 01/02. Patient is also to follow up with MERLIN Higgins, for an EGD next Sunday (01/12). Patient is to stop drinking alcohol and using cocaine/marijuana as this could be exacerbating his pain and symptoms. Patient is to resume his home medications and take Cipro 250mg by mouth twice a day for 7 days. Patient will also be given a script for Tramadol (disp #10) for pain control but he must follow up with his primary care for refills of pain medications. Patient to is return to his Primary care doctor or to the emergency room if his symptoms worsen. All instructions explained to the patient and he agrees. Discharge Exam - Head Exam Head Exam: ATRAUMATIC, NORMAL INSPECTION - Eye Exam Eye Exam: EOMI, Normal appearance, PERRL Pupil Exam: NORMAL ACCOMODATION - Respiratory Exam Respiratory Exam: Clear to PA & Lateral, NORMAL BREATHING PATTERN. absent: Accessory Muscle Use, Chest Wall Tenderness, Rales, Rhonchi, Wheezes, Respiratory Distress - Cardiovascular Exam Cardiovascular Exam: REGULAR RHYTHM, +S1, +S2 - GI/Abdominal Exam GI & Abdominal Exam: Normal Bowel Sounds, Soft, Tenderness. absent: Distended, Firm, Guarding - Extremities Exam Extremities exam: normal inspection - Back Exam Back exam: NORMAL INSPECTION. absent: CVA tenderness (L), CVA tenderness (R), paraspinal tenderness - Neurological Exam Neurological exam: Alert, CN II-XII Intact, Normal Gait, Oriented x3 - Psychiatric Exam Psychiatric exam: Normal Affect, Normal Mood - Skin Skin Exam: Dry, Intact, Normal Color, Warm Discharge Plan - Discharge Medications Prescriptions: Ciprofloxacin HCl [Cipro] 250 mg PO BID #14 tablet Tramadol HCl [Ultram] 25 mg PO Q8 PRN #10 tablet PRN Reason: Pain, Severe (8-10) - Follow Up Plan Condition: STABLE Disposition: HOME/ ROUTINE Instructions: Ciprofloxacin (By mouth), Tramadol (By mouth), Pancreatitis (DC) , Acute Abdominal Pain (DC), Abdominal Pain (ED) Additional Instructions: Patient stable for discharge today per GI Patient is to follow up with his primary care Dr. Fry within one week of discharge. Patient with recent visit the day before he was admitted to the hospital on 01/02. Patient is also to follow up with MERLIN Higgins, for an EGD next Sunday (01/12). Patient is to stop drinking alcohol and using cocaine/marijuana as this could be exacerbating his pain and symptoms. Patient is to resume his home medications and take Cipro 250mg by mouth twice a day for 7 days. Patient will also be given a script for Tramadol (disp #10) for pain control but he must follow up with his primary care for refills of pain medications. Patient to is return to his Primary care doctor or to the emergency room if his symptoms worsen. All instructions explained to the patient and he agrees. Referrals: Ken Patterson MD [Staff Provider] - Hi Fry, DNP, AUTO INSPECTION SPECIALIST [Advanced Practice Nurse] - <Rojas Olivo - Last Filed: 01/07/17 08:04> Provider - Provider Date of Admission: 01/04/17 16:58 Attending physician: Yisel Curtis, DO Hospital Course - Lab Results Lab Results: Micro Results 01/04/17 17:00 Blood-Venous Blood Culture - Preliminary NO GROWTH AFTER 48 HOURS 01/04/17 17:00 Blood-Venous Blood Culture - Preliminary NO GROWTH AFTER 48 HOURS 01/05/17 06:00 Urine,Clean Catch Urine Culture - Preliminary Gram Positive Cocci Most Recent Lab Values WBC 9.1 K/uL (4.8-10.8) 01/05/17 07:37 RBC 4.81 Mil/uL (4.40-5.90) 01/05/17 07:37 Hgb 14.7 g/dL (12.0-18.0) 01/05/17 07:37 Hct 44.0 % (35.0-51.0) 01/05/17 07:37 MCV 91.4 fL (80.0-94.0) 01/05/17 07:37 MCH 30.5 pg (27.0-31.0) 01/05/17 07:37 MCHC 33.3 g/dL (33.0-37.0) 01/05/17 07:37 RDW 13.4 % (11.5-14.5) 01/05/17 07:37 Plt Count 232 K/uL (130-400) 01/05/17 07:37 MPV 8.2 fL (7.2-11.7) 01/05/17 07:37 Neut % (Auto) 73.3 % (50.0-75.0) 01/05/17 07:37 Lymph % (Auto) 16.9 % (20.0-40.0) L 01/05/17 07:37 [place] % (Auto) 8.3 % (0.0-10.0) 01/05/17 07:37 Eos % (Auto) 1.1 % (0.0-4.0) 01/05/17 07:37 Baso % (Auto) 0.4 % (0.0-2.0) 01/05/17 07:37 Neut # 6.6 K/uL (1.8-7.0) 01/05/17 07:37 Lymph # 1.5 K/uL (1.0-4.3) 01/05/17 07:37 [place] # 0.8 K/uL (0.0-0.8) 01/05/17 07:37 Eos # 0.1 K/uL (0.0-0.7) 01/05/17 07:37 Baso # 0.0 K/uL (0.0-0.2) 01/05/17 07:37 Differential Comment 01/04/17 09:38 Sodium 138 mmol/L (132-148) 01/05/17 07:37 Potassium 3.8 mmol/L (3.6-5.2) 01/05/17 07:37 Chloride 99 mmol/L (98-107) 01/05/17 07:37 Carbon Dioxide 24 mmol/L (22-30) 01/05/17 07:37 Anion Gap 18 (10-20) 01/05/17 07:37 BUN 9 mg/dL (9-20) 01/05/17 07:37 Creatinine 0.9 MG/DL (0.8-1.5) 01/05/17 07:37 Est GFR ( Amer) > 60 01/05/17 07:37 Est GFR (Non-Af Amer) > 60 01/05/17 07:37 Random Glucose 80 mg/dL (75-110) 01/05/17 07:37 Calcium 8.6 mg/dl (8.6-10.4) 01/05/17 07:37 Phosphorus 3.8 mg/dL (2.5-4.5) 01/05/17 07:37 Magnesium 1.9 mg/dL (1.6-2.3) 01/05/17 07:37 Total Bilirubin 0.9 mg/dL (0.2-1.3) 01/05/17 07:37 AST 18 U/L (17-59) 01/05/17 07:37 ALT 26 U/L (21-72) 01/05/17 07:37 Alkaline Phosphatase 65 U/L (38-126) 01/05/17 07:37 Total Protein 6.6 g/dL (6.3-8.3) 01/05/17 07:37 Albumin 3.6 g/dL (3.5-5.0) 01/05/17 07:37 Globulin 3.0 gm/dL (2.2-3.9) 01/05/17 07:37 Albumin/Globulin Ratio 1.2 (1.0-2.1) 01/05/17 07:37 Amylase 176 U/L (30-110) H D 01/03/17 05:47 Lipase 253 U/L (23-300) 01/04/17 09:38 Urine Color Colorless (YELLOW) 01/05/17 01:16 Urine Clarity Clear (Clear) 01/05/17 01:16 Urine pH 8.0 (5.0-8.0) 01/05/17 01:16 Ur Specific [place] 1.002 (1.003-1.030) L 01/05/17 01:16 Urine Protein Negative mg/dL (NEGATIVE) 01/05/17 01:16 Urine Glucose (UA) Normal mg/dL (Normal) 01/05/17 01:16 Urine Ketones Negative mg/dL (NEGATIVE) 01/05/17 01:16 Urine Blood Negative (NEGATIVE) 01/05/17 01:16 Urine Nitrate Negative (NEGATIVE) 01/05/17 01:16 Urine Bilirubin Negative (NEGATIVE) 01/05/17 01:16 Urine Urobilinogen Normal mg/dL (0.2-1.0) 01/05/17 01:16 Ur Leukocyte Esterase Neg Claribel/uL (Negative) 01/05/17 01:16 Urine WBC (Auto) < 1 /hpf (0-5) 01/03/17 08:22 Urine RBC (Auto) 1 /hpf (0-3) 01/03/17 08:22 Ur Squamous Epith Cells < 1 /hpf (0-5) 01/03/17 08:22 Urine Opiates Screen Positive (NEGATIVE) 01/03/17 18:02 Urine Methadone Screen Negative (NEGATIVE) 01/03/17 18:02 Ur Barbiturates Screen Negative (NEGATIVE) 01/03/17 18:02 Ur Phencyclidine Scrn Negative (NEGATIVE) 01/03/17 18:02 Ur Amphetamines Screen Negative (NEGATIVE) 01/03/17 18:02 U Benzodiazepines Scrn Negative (NEGATIVE) 01/03/17 18:02 U Oth Cocaine Metabols Positive (NEGATIVE) 01/03/17 18:02 U Cannabinoids Screen Positive (NEGATIVE) 01/03/17 18:02 Influenza Typ A,B (EIA) Negative for flu a/b (NEGATIVE) 01/05/17 Unknown Attending/Attestation - Attestation I have personally seen and examined this patient.: Yes I have fully participated in the care of the patient.: Yes I have reviewed all pertinent clinical information, including history, physical exam and plan: Yes Notes (Text): 01/07/17 08:02 Medical attending: Patient was seen and examined by me, agree with the above note by resident. However it needs to be pointed out that the patient was discharged some time agothis discharge summary is forward to be now and so I'm signing it at a later date. Regardless the patient will need to follow-up with his primary care physician as well as his GI physician. He'll also need to take additional days of antibiotics to go home with We explained to the patient that he needs to be very careful and avoid all polysubstance abuse including alcohol as this could cause further problems with his history of chronic pancreatitis Thank you very much, Rojas Olivo 01/07/17 08:04
[2017-01-05 16:56] VITALS: BP 104/63; PULSE 56; O2SAT 96
[2017-01-05] MEDS ORDERED: Pneumococcal 23-Valent Vaccine IM ONE (17:26)
[2017-01-05] MEDS ORDERED: POLYETHYLENE GLYCOL 3350 17 GM/Dose PACKET PO SCH (18:00)
== END 2017-01-05 19:20 | disposition home or self-care (01) | DRG 204 ==
LOC: C.ER 04:33 → C.9E 09:28 → C.5T 11:05 → OBSVTOIN 01-04 16:58 → C.3T 01-05 06:41
PROVIDERS: ADMIT Hospitalist; ATTEND Hospitalist
DX: K86.1 Other chronic pancreatitis (principal); F11.10 Opioid abuse, uncomplicated; F14.10 Cocaine abuse, uncomplicated; F14.90 Cocaine use, unspecified, uncomplicated; G89.29 Other chronic pain; J45.909 Unspecified asthma, uncomplicated; K59.09 Other constipation; Z87.891 Personal history of nicotine dependence; Z23 Encounter for immunization; F12.10 Cannabis abuse, uncomplicated

== ENCOUNTER 2017-01-12 07:40 | Day surgery (SDC) | payer MEDICAID ==
[2017-01-12 08:40] VITALS: BMI 27.4
[2017-01-12 08:59] VITALS: TEMP 97.8
[2017-01-12] MEDS ORDERED: Propofol 10 mg/ml Inj (20 ML) ONE ×2 (09:45→09:55)
[2017-01-12 10:41] VITALS: RESP 10
[2017-01-12 10:59] VITALS: BP 104/86; PULSE 62; O2SAT 98
--- NOTE | 2017-01-23 15:44 | CP.SDSHP ---
Same Day Surgery H & P - History Proposed Procedure: EGD Pre-Op Diagnosis: Pancreas divisum - Previous Medical/Surgical History Previous Surgical History: ERCP - Allergies Allergies: Allergies No Known Allergies Allergy (Verified 01/12/17 08:39) - Physical Exam General Appearance: nl Mental Status: Alert & Oriented x3 Neuro: WNL Heart: WNL Lungs: WNL GI: WNL - {Optional Preform as Required} Abdomen: WNL - Impression Impression: EGD with PD stent removal Pt. Evaluated Today:Candidate for Anesthesia & Procedure: Yes - Date & Time Date: 01/12/17 Time: 08:00 Short Stay Discharge - Short Stay Discharge Admitting Diagnosis/Reason for Visit: ENCNTR FOR ADJUST OR REMOVAL OF MYRINGOTOMY DEVICE Disposition: HOME/ ROUTINE
== END 2017-01-12 12:11 | disposition home or self-care (01) ==
LOC: C.ENDO 07:40
PROVIDERS: ATTEND Internal Medicine
DX: Z46.89 Encounter for fitting and adjustment of other specified devices (principal); K29.70 Gastritis, unspecified, without bleeding; J45.909 Unspecified asthma, uncomplicated
CPT/HCPCS: 43247; J2704; J7040

== ENCOUNTER 2017-06-29 10:16 | Emergency (ER) | payer MEDICAID ==
[2017-06-29 10:23] VITALS: BMI 27.8
[2017-06-29] MEDS ORDERED: Sodium Chloride 0.9% 1,000 ML IV ONE (11:08)
[2017-06-29] MEDS ORDERED: Sodium Chloride 0.9% 1,000 ML ONE (11:09)
[2017-06-29 11:11] LABS: BASO % 0.6 % (0.0-2.0); EOS # 0.4 K/uL (0.0-0.7); EOS % 5.6 % (0.0-4.0); HEMATOCRIT 48.1 % (35.0-51.0); LYMPH # 1.9 K/uL (1.0-4.3); MEAN CELL VOLUME 89.9 fL (80.0-94.0); MEAN CORPUSCULAR HEMOGLOBIN 30.4 pg (27.0-31.0); MEAN CORPUSCULAR HGB CONC 33.9 g/dL (33.0-37.0); MEAN PLATELET VOLUME 7.5 fL (7.2-11.7); MONO # 0.5 K/uL (0.0-0.8); MONO % 8.3 % (0.0-10.0); NRBC % 0.1 % (0.0-2.0); RED CELL DISTRIBUTION WIDTH 14.7 % (11.5-14.5); WHITE BLOOD COUNT 6.4 K/uL (4.8-10.8)
[2017-06-29 11:20] LABS: CHLORIDE 104 mmol/L (98-107)
[2017-06-29 11:21] LABS: POTASSIUM 4.6 mmol/L (3.6-5.2); SODIUM 141 mmol/L (132-148)
[2017-06-29 11:23] LABS: ALB/GLOB RATIO 1.2 (1.0-2.1); ALKALINE PHOSPHATASE 78 U/L (38-126); AST/SGOT 25 U/L (17-59); BILIRUBIN,TOTAL 0.4 mg/dL (0.2-1.3); CARBON DIOXIDE 23 mmol/L (22-30); GFR AFRICAN-AMERICAN > 60; TOTAL PROTEIN 6.9 g/dL (6.3-8.3)
[2017-06-29 11:24] LABS: ALT/SGPT 42 U/L (21-72); BLOOD UREA NITROGEN 13 mg/dL (9-20); CALCIUM 9.4 mg/dl (8.6-10.4); GLUCOSE,RANDOM 83 mg/dL (75-110)
[2017-06-29 11:51] LABS: RBC URINE 1 /hpf (0-3); URINE BILIRUBIN NEGATIVE (NEGATIVE); URINE BLOOD NEGATIVE (NEGATIVE); URINE COLOR Yellow (YELLOW); URINE GLUCOSE (UA) NORMAL (Normal); URINE KETONE NEGATIVE (NEGATIVE); URINE LEUKOCYTE ESTERASE NEG Leu/uL (Negative); URINE PROTEIN NEGATIVE (NEGATIVE); URINE UROBILINOGEN NORMAL mg/dL (0.2-1.0); WBC URINE < 1 /hpf (0-5)
--- NOTE | 2017-06-29 12:20 | C.PDOC ---
Time Seen by Provider: 06/29/17 10:24 Chief Complaint (Nursing): Abdominal Pain Past Medical History Vital Signs: Last Vital Signs Temp 98.6 F 06/29/17 12:16 Pulse 63 06/29/17 12:16 Resp 17 06/29/17 12:16 BP 112/75 06/29/17 12:16 Pulse Ox 97 06/29/17 12:16 - Medical History PMH: Arthritis, Asthma, Back Problems (spinal stenosis), Depression, Gall Bladder Disease (removed GB), Pancreatitis, Rheumatoid Arthritis Denies: CHF, Colonic Polyps, COPD, Diabetes, Fractures, Hepatitis, HIV, HTN, Hypercholesterolemia, Hypothyroidism, Chronic Kidney Disease, Seizures, Sexually Transmitted Disease Surgical History: Cholecystectomy (2004), Endoscopy Denies: Pacemaker - [facility] Procedures DILATION OF PANCREATIC DUCT WITH INTRALUMINAL DEVICE, ENDO (08/01/16) EXCISION OF STOMACH, ENDO, DIAGN (10/28/15) INSPECTION OF UPPER INTESTINAL TRACT, ENDO (08/01/16) ULTRASONOGRAPHY OF HEPATOBILIARY SYSTEM, ALL (08/01/16) Family History: States: Unknown Family Hx - Social History Hx Tobacco Use: No Hx Alcohol Use: No Hx Substance Use: Yes (marijuana) - Immunization History Hx Tetanus Toxoid Vaccination: Yes Hx Influenza Vaccination: Yes Hx Pneumococcal Vaccination: Yes ED Course And Treatment - Laboratory Results Result Diagrams: 06/29/17 11:08 06/29/17 11:08 O2 Sat by Pulse Oximetry: 97 Disposition - Disposition Forms: [employer] (Rwandan)
--- NOTE | 2017-06-29 12:21 | C.PDOC ---
History Of Present Illness 41 y/o male, with PMHx of pancreatitis, presents to ED for evaluation of epigastric and RUQ abdominal pain associated with vomiting and diarrhea since last night. Pt states that pain radiates to his back, and notes that his symptoms feel similar to prior pancreatitis. Patient states he tried to see his PMD but he was not available. Patient denies fever, chills, chest pain, shortness of breath, dysuria/hematuria. PMD: Hi Fry Time Seen by Provider: 06/29/17 10:24 Chief Complaint (Nursing): Abdominal Pain History Per: Patient History/Exam Limitations: no limitations Onset/Duration Of Symptoms: Days (1) Current Symptoms Are (Timing): Still Present Severity: Moderate Location Of Pain/Discomfort: RUQ, Epigastric Radiation Of Pain To:: Back Quality Of Discomfort: "Pain" Associated Symptoms: Nausea, Vomiting, Diarrhea, Back Pain. denies: Fever, Chills, Loss Of Appetite, Chest Pain, Constipation, Urinary Symptoms Exacerbating Factors: None Alleviating Factors: None Additional History Per: Patient Past Medical History Reviewed: Historical Data, Nursing Documentation, Vital Signs Vital Signs: Last Vital Signs Temp 98.0 F 06/29/17 13:15 Pulse 65 06/29/17 13:15 Resp 18 06/29/17 13:15 BP 113/75 06/29/17 13:15 Pulse Ox 98 06/29/17 13:15 - Medical History PMH: Arthritis, Asthma, Back Problems (spinal stenosis), Depression, Gall Bladder Disease (removed GB), Pancreatitis, Rheumatoid Arthritis Surgical History: Cholecystectomy (2004), Endoscopy - [facility] Procedures DILATION OF PANCREATIC DUCT WITH INTRALUMINAL DEVICE, ENDO (08/01/16) EXCISION OF STOMACH, ENDO, DIAGN (10/28/15) INSPECTION OF UPPER INTESTINAL TRACT, ENDO (08/01/16) ULTRASONOGRAPHY OF HEPATOBILIARY SYSTEM, ALL (08/01/16) Family History: States: No Known Family Hx - Social History Hx Tobacco Use: No Hx Alcohol Use: No Hx Substance Use: Yes (marijuana) - Immunization History Hx Tetanus Toxoid Vaccination: Yes Hx Influenza Vaccination: Yes Hx Pneumococcal Vaccination: Yes Review Of Systems Except As Marked, All Systems Reviewed And Found Negative. Constitutional: Negative for: Fever, Chills Cardiovascular: Negative for: Chest Pain, Palpitations Respiratory: Negative for: Cough, Shortness of Breath Gastrointestinal: Positive for: Nausea, Vomiting, Abdominal Pain, Diarrhea Genitourinary: Negative for: Dysuria, Frequency, Hematuria Musculoskeletal: Negative for: Neck Pain Neurological: Negative for: Headache, Dizziness Physical Exam - Physical Exam Appears: Well, Non-toxic, Other (In mild pain) Skin: Normal Color, Warm, Dry, No Rash Head: Normacephalic Eye(s): bilateral: Normal Inspection Oral Mucosa: Moist Neck: Supple Cardiovascular: Rhythm Regular Respiratory: Normal Breath Sounds, No Rales, No Rhonchi, No Wheezing Gastrointestinal/Abdominal: Bowel Sounds, Soft, Tenderness (epigastric), No Guarding, No Rebound, Other ((-)Rowe's, (-)McBurney's) Back: Normal Inspection, No CVA Tenderness, No Vertebral Tenderness Extremity: Normal ROM, No Pedal Edema Neurological/Psych: Oriented x3 ED Course And Treatment - Laboratory Results Result Diagrams: 06/29/17 11:08 06/29/17 11:08 O2 Sat by Pulse Oximetry: 100 (on RA) Pulse Ox Interpretation: Normal Progress Note: Blood work, UA ordered and reviewed. Pt was given IV toradol, IV zofran and IV NS bolus. On reassessment, patient still having pain - IV morphine ordered. Reevaluation Time: 13:10 Reassessment Condition: Improved (On reassessment, patient is resting comfortable and states he feels better. On exan, abdomen is soft and nontender. Blood work unremarkable. Patient is well appearing and comfortable being discharged. Rxs given for pain and nausea, and patient instructed to follow up with PMD in 1-2 days. Patient understands he should return to ED if symptoms worsen.) Disposition Counseled Patient/Family Regarding: Studies Performed, Diagnosis, Need For Followup, Rx Given - Disposition Referrals: Hi Fry, LOGAN, DIRECTOR OF CONSULTING SERVICES [Advanced Practice Nurse] - Disposition: HOME/ ROUTINE Disposition Time: 13:10 Condition: STABLE Prescriptions: Hydrocodone/Acetaminophen [Hydrocodon-Acetaminophen 5-325] 1 each PO Q6 PRN #15 tablet PRN Reason: Pain, Moderate (4-7) Ondansetron [Zofran Odt] 4 mg PO Q8 PRN #15 odt PRN Reason: Nausea/Vomiting Instructions: Acute Abdominal Pain (ED) Forms: [employer] (Filipino) Print Language: AUSTRIAN - POA Present On Arrival: None - Clinical Impression Clinical Impression: Chronic pancreatitis, Abdominal pain - Scribe Statement The provider has reviewed the documentation as recorded by the Anthonyibe Max Purcell All medical record entries made by the Anthonyibe were at my direction and personally dictated by me. I have reviewed the chart and agree that the record accurately reflects my personal performance of the history, physical exam, medical decision making, and the department course for this patient. I have also personally directed, reviewed, and agree with the discharge instructions and disposition.
[2017-06-29] MEDS ORDERED: Morphine 4 MG/ML VIAL ONE (12:22)
[2017-06-29 13:16] VITALS: BP 113/75; PULSE 65; RESP 18; TEMP 98
[2017-07-02 16:59] VITALS: O2SAT 100
== END 2017-06-29 13:17 | disposition home or self-care (01) ==
LOC: C.ER 10:16
DX: K86.1 Other chronic pancreatitis (principal); R10.11 Right upper quadrant pain
CPT/HCPCS: 80053; 81001; 83690; 85025; 96361; 96374; 96375; 99285; J1885; J2270; J2405; J7040

== ENCOUNTER 2017-11-14 18:10 | Inpatient (IN) | payer MEDICAID ==
[2017-11-14 18:23] VITALS: BMI 28.8
[2017-11-14] MEDS ORDERED: Sodium Chloride 0.9% 1,000 ML IV ONE (18:58)
[2017-11-14] MEDS ORDERED: Sodium Chloride 0.9% 1,000 ML ONE (19:10)
[2017-11-14 19:15] LABS: BASO # 0.1 K/uL (0.0-0.2); BASO % 0.7 % (0.0-2.0); EOS # 0.1 K/uL (0.0-0.7); EOS % 1.3 % (0.0-4.0); HEMOGLOBIN 17.9 g/dL (12.0-18.0); LYMPH # 2.1 K/uL (1.0-4.3); MEAN CELL VOLUME 89.6 fL (80.0-94.0); MEAN CORPUSCULAR HEMOGLOBIN 30.5 pg (27.0-31.0); MEAN PLATELET VOLUME 7.5 fL (7.2-11.7); MONO # 0.5 K/uL (0.0-0.8); MONO % 4.9 % (0.0-10.0); NEUT # 7.3 K/uL (1.8-7.0); NEUT % 72.1 % (50.0-75.0); NRBC % 0.1 % (0.0-2.0); RBC 5.88 Mil/uL (4.40-5.90); RED CELL DISTRIBUTION WIDTH 13.7 % (11.5-14.5)
[2017-11-14 19:24] LABS: WHITE BLOOD COUNT 10.1 K/uL (4.8-10.8)
[2017-11-14] MEDS ORDERED: Morphine 4 MG/ML VIAL ONE ×2 (19:25→21:23)
[2017-11-14 19:34] LABS: ALB/GLOB RATIO 1.1 (1.0-2.1); ALBUMIN 4.5 g/dL (3.5-5.0); ALT/SGPT 32 U/L (21-72); AST/SGOT 30 U/L (17-59); BLOOD UREA NITROGEN 12 mg/dL (9-20); CALCIUM 9.8 mg/dl (8.6-10.4); GFR AFRICAN-AMERICAN > 60; GFR NON-AFRICAN AMERICAN > 60; LIPASE 1115 U/L (23-300)
--- NOTE | 2017-11-14 20:07 | C.PDOC ---
History Of Present Illness 42-year-old male, PMHx includes past history of EtOH abuse and chronic pancreatitis, and Substance abuse, presents to the emergency department with complaints of epigastric abdominal pain and right-upper quadrant abdominal pain that started yesterday. Pain is localized and not associated with PO intake. Patient has nausea with vomiting and is unable to eat. He feels clammy and diaphoretic. Time Seen by Provider: 11/14/17 18:49 Chief Complaint (Nursing): Abdominal Pain History Per: Patient History/Exam Limitations: no limitations Onset/Duration Of Symptoms: Days Current Symptoms Are (Timing): Still Present Severity: Moderate Location Of Pain/Discomfort: RUQ, Epigastric Past Medical History Reviewed: Historical Data, Nursing Documentation, Vital Signs Vital Signs: Last Vital Signs Temp 97.4 F L 11/14/17 18:24 Pulse 108 H 11/14/17 18:24 Resp 18 11/14/17 18:24 BP 125/87 11/14/17 18:24 Pulse Ox 100 11/14/17 20:52 - Medical History PMH: Arthritis, Asthma, Back Problems (spinal stenosis), Depression, Gall Bladder Disease (removed GB), Pancreatitis, Rheumatoid Arthritis Surgical History: Cholecystectomy (2004), Endoscopy Denies: Pacemaker - [facility] Procedures DILATION OF PANCREATIC DUCT WITH INTRALUMINAL DEVICE, ENDO (08/01/16) EXCISION OF STOMACH, ENDO, DIAGN (10/28/15) INSPECTION OF UPPER INTESTINAL TRACT, ENDO (08/01/16) ULTRASONOGRAPHY OF HEPATOBILIARY SYSTEM, ALL (08/01/16) Family History: States: No Known Family Hx - Social History Hx Tobacco Use: No Hx Alcohol Use: No Hx Substance Use: No - Immunization History Hx Tetanus Toxoid Vaccination: No Hx Influenza Vaccination: Yes Hx Pneumococcal Vaccination: Yes Review Of Systems Constitutional: Negative for: Fever, Chills Cardiovascular: Negative for: Chest Pain Respiratory: Negative for: Shortness of Breath Gastrointestinal: Positive for: Nausea, Vomiting, Abdominal Pain. Negative for : Diarrhea, Melena, Hematochezia, Hematemesis Genitourinary: Positive for: Dysuria Musculoskeletal: Negative for: Back Pain Neurological: Negative for: Weakness, Numbness, Headache, Dizziness Physical Exam - Physical Exam Appears: Non-toxic, No Acute Distress Skin: Warm, Dry, No Rash Head: Normacephalic Eye(s): bilateral: Normal Inspection, PERRL Nose: Normal Oral Mucosa: Moist Lips: Normal Appearing Neck: Normal ROM Chest: Symmetrical Cardiovascular: Rhythm Regular, No Murmur Respiratory: Normal Breath Sounds, No Accessory Muscle Use Gastrointestinal/Abdominal: Soft, Tenderness (Epigastric and right upper quadrant), No Guarding, No Rebound Extremity: Normal ROM, No Deformity, No Swelling Neurological/Psych: Oriented x3, Normal Speech ED Course And Treatment - Laboratory Results Result Diagrams: 11/14/17 19:09 11/14/17 19:09 Lab Interpretation: Abnormal (Lipase 1115) O2 Sat by Pulse Oximetry: 100 (RA) Pulse Ox Interpretation: Normal Reevaluation Time: 21:10 Reassessment Condition: Unchanged (Still c/o pain) - Physician Consult Information Time Consulting Physician Contacted: 21:10 Physician Contacted: Cat Urbina Outcome Of Conversation: Patient to be admitted for acute on chronic pancreatitis with recurrent pain. Medical Decision Making Medical Decision Making: Plan: * CMP, Lipase * CBC * Morphine, IVFs * UA * Reassess and Disposition Disposition - Disposition Disposition: HOSPITALIZED Disposition Time: 21:14 Condition: STABLE - POA Present On Arrival: None - Clinical Impression Clinical Impression: Pancreatitis - Scribe Statement The provider has reviewed the documentation as recorded by the Scribe (Jaswinder Feliz) All medical record entries made by the Scribe were at my direction and personally dictated by me. I have reviewed the chart and agree that the record accurately reflects my personal performance of the history, physical exam, medical decision making, and the department course for this patient. I have also personally directed, reviewed, and agree with the discharge instructions and disposition.
[2017-11-14 20:22] LABS: SQUAMOUS EPITHIAL < 1 /hpf (0-5); URINE BILIRUBIN NEGATIVE (NEGATIVE); URINE BLOOD NEGATIVE (NEGATIVE); URINE CLARITY Clear (Clear); URINE COLOR Yellow (YELLOW); URINE GLUCOSE (UA) NORMAL (Normal); URINE LEUKOCYTE ESTERASE NEG Leu/uL (Negative); URINE NITRATE NEGATIVE (NEGATIVE); URINE PROTEIN NEGATIVE (NEGATIVE); URINE UROBILINOGEN NORMAL mg/dL (0.2-1.0)
[2017-11-14] MEDS ORDERED: Albuterol HFA 90 mcg/actuation (8 g) INH PRN (21:21)
[2017-11-14 21:27] VITALS: RESP 20
[2017-11-14] MEDS: Dextrose 5%/0.45% NS 1,000 ML IV SCH (22:28)
[2017-11-14 22:40] LABS: BARBITURATES, UR NEGATIVE (NEGATIVE); BENZODIAZEPINES, UR NEGATIVE (NEGATIVE); PHENCYCLIDINE, UR NEGATIVE (NEGATIVE)
[2017-11-14 23:02] LABS: OPIATES, UR POSITIVE (NEGATIVE)
[2017-11-15] MEDS: Morphine 4 MG/ML VIAL IV PRN ×5 (01:20→19:21)
[2017-11-15] MEDS: Dextrose 5%/0.45% NS 1,000 ML IV SCH ×4 (05:44→17:40)
[2017-11-15 07:24] LABS: AMYLASE 134 U/L (30-110); LIPASE 126 U/L (23-300)
[2017-11-15] MEDS ORDERED: Albuterol HFA 90 mcg/actuation (8 g) INH PRN (14:15)
--- NOTE | 2017-11-15 19:31 | CP.PCM.HP ---
History of Present Illness - History of Present Illness History of Present Illness: abd pain pacreatitis Present on Admission - Present on Admission Any Indicators Present on Admission: No Review of Systems - Review of Systems Systems not reviewed;Unavailable: Acuity of Condition - Constitutional Constitutional: As Per HPI - EENT Eyes: As Per HPI Ears: As Per HPI Nose/Mouth/Throat: As Per HPI - Cardiovascular Cardiovascular: As Per HPI - Respiratory Respiratory: As Per HPI, Dyspnea on Exertion - Gastrointestinal Gastrointestinal: Abdominal Pain - Genitourinary Genitourinary: As Per HPI - Reproductive: Male Reproductive:Male: As Per HPI - Musculoskeletal Musculoskeletal: As Per HPI - Integumentary Integumentary: As Per HPI - Neurological Neurological: As Per HPI - Psychiatric Psychiatric: As Per HPI - Endocrine Endocrine: As Per HPI - Hematologic/Lymphatic Hematologic: As Per HPI Past Patient History - Infectious Disease Hx of Infectious Diseases: None - Tetanus Immunizations Tetanus Immunization: Unknown - Past Medical History & Family History Past Medical History?: Yes - Past Social History Smoking Status: Current Some Days Smoker - CARDIAC Hx Pacemaker: No - PULMONARY Hx Asthma: Yes - NEUROLOGICAL Hx Neurological Disorder: No Hx Seizures: No - HEENT Hx HEENT Problems: No - RENAL Hx Chronic Kidney Disease: No - ENDOCRINE/METABOLIC Hx Endocrine Disorders: No Hx Hypothyroidism: No - HEMATOLOGICAL/ONCOLOGICAL Hx Blood Disorders: No Hx Human Immunodeficiency Virus (HIV): No - INTEGUMENTARY Hx Dermatological Problems: No - MUSCULOSKELETAL/RHEUMATOLOGICAL Hx Falls: No - GASTROINTESTINAL Hx Gastrointestinal Disorders: No Hx Gall Bladder Disease: Yes (removed GB) Hx Pancreatitis: Yes - GENITOURINARY/GYNECOLOGICAL Hx Genitourinary Disorders: No Hx Sexually Transmitted Disorders: No - PSYCHIATRIC Hx Substance Use: Yes - SURGICAL HISTORY Hx Surgeries: Yes Hx Cholecystectomy: Yes (2004) - ANESTHESIA Hx Anesthesia: Yes Hx Anesthesia Reactions: No Hx Malignant Hyperthermia: No Meds Allergies/Adverse Reactions: Allergies Allergy/AdvReac Type Severity Reaction Status Date / Time No Known Allergies Allergy Verified 11/14/17 18:22 Physical Exam - Constitutional Appears: In Acute Distress - Head Exam Head Exam: ATRAUMATIC - Eye Exam Eye Exam: Normal appearance Pupil Exam: NORMAL ACCOMODATION - ENT Exam ENT Exam: Mucous Membranes Moist - Respiratory Exam Respiratory Exam: NORMAL BREATHING PATTERN - GI/Abdominal Exam GI & Abdominal Exam: Diminished Bowel Sounds, Tenderness - Rectal Exam Rectal Exam: NORMAL INSPECTION - Exam Exam: NORMAL INSPECTION - Extremities Exam Extremities exam: Positive for: normal inspection Results - Vital Signs Recent Vital Signs: Last Vital Signs Temp 97.9 F 11/15/17 09:19 Pulse 60 11/15/17 09:19 Resp 20 11/15/17 09:19 BP 114/77 11/15/17 09:19 Pulse Ox 95 11/15/17 09:19 - Labs Result Diagrams: 11/14/17 19:09 11/14/17 19:09 Labs: Laboratory Results - last 24 hr 11/14/17 11/14/17 11/14/17 19:09 20:04 22:09 Sodium 140 Potassium 3.6 Chloride 99 Carbon Dioxide 26 Anion Gap 19 BUN 12 Creatinine 0.9 Est GFR ( Amer) > 60 Est GFR (Non-Af Amer) > 60 Random Glucose 111 H Calcium 9.8 Total Bilirubin 0.7 AST 30 ALT 32 Alkaline Phosphatase 88 Total Protein 8.5 H Albumin 4.5 Globulin 4.0 H Albumin/Globulin Ratio 1.1 Amylase Lipase 1115 H Urine Color Yellow Urine Clarity Clear Urine pH 6.0 Ur Specific [place] 1.015 Urine Protein Negative Urine Glucose (UA) Normal Urine Ketones Negative Urine Blood Negative Urine Nitrate Negative Urine Bilirubin Negative Urine Urobilinogen Normal Ur Leukocyte Esterase Neg Urine WBC (Auto) < 1 Urine RBC (Auto) 2 Ur Squamous Epith Cells < 1 Urine Opiates Screen Positive H Urine Methadone Screen Negative Ur Barbiturates Screen Negative Ur Phencyclidine Scrn Negative Ur Amphetamines Screen Negative U Benzodiazepines Scrn Negative U Oth Cocaine Metabols Negative U Cannabinoids Screen Positive H 11/15/17 06:59 Sodium Potassium Chloride Carbon Dioxide Anion Gap BUN Creatinine Est GFR ( Amer) Est GFR (Non-Af Amer) Random Glucose Calcium Total Bilirubin AST ALT Alkaline Phosphatase Total Protein Albumin Globulin Albumin/Globulin Ratio Amylase 134 H D Lipase 126 Urine Color Urine Clarity Urine pH Ur Specific [place] Urine Protein Urine Glucose (UA) Urine Ketones Urine Blood Urine Nitrate Urine Bilirubin Urine Urobilinogen Ur Leukocyte Esterase Urine WBC (Auto) Urine RBC (Auto) Ur Squamous Epith Cells Urine Opiates Screen Urine Methadone Screen Ur Barbiturates Screen Ur Phencyclidine Scrn Ur Amphetamines Screen U Benzodiazepines Scrn U Oth Cocaine Metabols U Cannabinoids Screen Assessment & Plan - Assessment and Plan (Free Text) Assessment: ac pancreatitos asthma Plan: admit npo repeat lab aluterol inhaler - Date & Time Date: 11/15/17 Time: 19:33
[2017-11-16] MEDS: Morphine 4 MG/ML VIAL IV PRN ×4 (00:25→14:24)
[2017-11-16] MEDS: Dextrose 5%/0.45% NS 1,000 ML IV SCH ×2 (02:48→12:30)
[2017-11-16 09:14] VITALS: BP 109/70; PULSE 60; TEMP 98.7; O2SAT 96
--- NOTE | 2017-11-16 12:19 | CP.PCM.PN ---
Subjective - Date & Time of Evaluation Date of Evaluation: 11/16/17 Time of Evaluation: 12:17 - Subjective Subjective: less abd pain tolerating liqed diet lipas dec Objective - Vital Signs/Intake and Output Vital Signs (last 24 hours): Temp Pulse Resp BP Pulse Ox 98.7 F 60 20 109/70 96 11/16/17 08:00 11/16/17 08:00 11/16/17 08:00 11/16/17 08:00 11/16/17 08:00 Intake and Output: 11/16/17 11/16/17 06:59 18:59 Intake Total 800 800 Balance 800 800 - Medications Medications: Current Medications Albuterol (Ventolin Hfa 90 Mcg/Actuation (8 G)) 2 puff INH RQ6 PRN PRN Reason: Shortness of Breath Folic Acid (Folic Acid) 1 mg PO DAILY [facility] Last Admin: 11/16/17 09:26 Dose: 1 mg Heparin Sodium (Porcine) (Heparin) 5,000 units SC Q12 [facility] Last Admin: 11/16/17 09:28 Dose: 5,000 units Dextrose/Sodium Chloride (Dextrose 5%/0.45% Ns 1000 Ml) 1,000 mls @ 100 mls/hr IV .Q10H [facility] Last Admin: 11/16/17 02:48 Dose: 100 mls/hr Morphine Sulfate (Morphine) 1 mg IV Q4 PRN PRN Reason: Pain, moderate (4-7) Last Admin: 11/16/17 09:27 Dose: 1 mg Risperidone (Risperdal Tab) 1 mg PO BID [facility] Last Admin: 11/16/17 09:26 Dose: 1 mg Sertraline HCl (Zoloft) 50 mg PO DAILY [facility] Last Admin: 11/16/17 09:26 Dose: 50 mg - Labs Labs: 11/14/17 19:09 11/14/17 19:09 - Constitutional Appears: Non-toxic - Head Exam Head Exam: NORMAL INSPECTION - ENT Exam ENT Exam: Normal Exam - Neck Exam Neck Exam: Normal Inspection - Respiratory Exam Respiratory Exam: Clear to Ausculation Bilateral - Cardiovascular Exam Cardiovascular Exam: REGULAR RHYTHM - GI/Abdominal Exam GI & Abdominal Exam: Soft, Normal Bowel Sounds - Rectal Exam Rectal Exam: NORMAL INSPECTION - Exam Exam: NORMAL INSPECTION - Extremities Exam Extremities Exam: Normal Inspection - Back Exam Back Exam: NORMAL INSPECTION - Neurological Exam Neurological Exam: Alert, Oriented x3 - Psychiatric Exam Psychiatric exam: Normal Affect - Skin Skin Exam: Normal Color Assessment and Plan - Assessment and Plan (Free Text) Assessment: ac pancreatitis improved Plan: increase diet if tolerated will discharge
--- NOTE | 2017-11-16 17:01 | CP.PCM.PN ---
Subjective - Date & Time of Evaluation Date of Evaluation: 11/16/17 Time of Evaluation: 17:02 - Subjective Subjective: ALERT, ORIENTEDX3, NO ABDOMINAL PAIN, ABLE TO TOLERATE BLAND DIET. Objective - Vital Signs/Intake and Output Vital Signs (last 24 hours): Temp Pulse Resp BP Pulse Ox 98.7 F 60 20 109/70 96 11/16/17 08:00 11/16/17 08:00 11/16/17 08:00 11/16/17 08:00 11/16/17 08:00 Intake and Output: 11/16/17 11/16/17 06:59 18:59 Intake Total 800 1960 Balance 800 1959 - Medications Medications: Current Medications Albuterol (Ventolin Hfa 90 Mcg/Actuation (8 G)) 2 puff INH RQ6 PRN PRN Reason: Shortness of Breath Folic Acid (Folic Acid) 1 mg PO DAILY [facility] Last Admin: 11/16/17 09:26 Dose: 1 mg Heparin Sodium (Porcine) (Heparin) 5,000 units SC Q12 [facility] Last Admin: 11/16/17 09:28 Dose: 5,000 units Dextrose/Sodium Chloride (Dextrose 5%/0.45% Ns 1000 Ml) 1,000 mls @ 100 mls/hr IV .Q10H [facility] Last Admin: 11/16/17 12:30 Dose: 100 mls/hr Morphine Sulfate (Morphine) 1 mg IV Q4 PRN PRN Reason: Pain, moderate (4-7) Last Admin: 11/16/17 14:24 Dose: 1 mg Risperidone (Risperdal Tab) 1 mg PO BID [facility] Last Admin: 11/16/17 09:26 Dose: 1 mg Sertraline HCl (Zoloft) 50 mg PO DAILY [facility] Last Admin: 11/16/17 09:26 Dose: 50 mg - Labs Labs: 11/14/17 19:09 11/14/17 19:09 Assessment and Plan - Assessment and Plan (Free Text) Assessment: Patient is seen and examined. Admitted with pancreatitis , abdominal pain, tolerating diet now. Alert and orientedx3, denies abdominal pain.Discussed with DR Urbina, plan to discharge home today. Advised to follow up with PMD IN 1 WEEK.
[2017-11-17] MEDS ORDERED: Pneumococcal 23-Valent Vaccine IM ONE (10:00)
== END 2017-11-16 17:29 | disposition home or self-care (01) | DRG 204 ==
LOC: C.ER 18:10 → C.3T 21:14
PROVIDERS: ADMIT Internal Medicine; ATTEND Internal Medicine
DX: K85.90 Acute pancreatitis without necrosis or infection, unspecified (principal); F17.210 Nicotine dependence, cigarettes, uncomplicated; J45.909 Unspecified asthma, uncomplicated; F32.9 Major depressive disorder, single episode, unspecified; Z90.49 Acquired absence of other specified parts of digestive tract; M06.9 Rheumatoid arthritis, unspecified; M48.00 Spinal stenosis, site unspecified

== ENCOUNTER 2018-03-07 00:49 | Emergency (ER) | payer MEDICAID ==
[2018-03-07 01:08] VITALS: RESP 18
--- NOTE | 2018-03-07 01:15 | C.PDOC ---
History Of Present Illness 42 y/o male with pmh asthma and pancreatitis, last admitted 01/27/18, presents to ed with c/o n/v/d and epigastric abdominal pain starting at 1830 last night after eating chicken and rice. pt sts pain feels like prior episodes of pancreatitis. no fever or chills. pt has not followed up with either pmd or gi since discharge after last hospitalization, and sts he takes pancreatic enzymes intermittently since he doesn't have refill . Time Seen by Provider: 03/07/18 01:10 Chief Complaint (Nursing): Abdominal Pain History Per: Patient History/Exam Limitations: no limitations Onset/Duration Of Symptoms: Hrs (6) Current Symptoms Are (Timing): Still Present Context: Food Severity: Moderate Location Of Pain/Discomfort: Epigastric Quality Of Discomfort: "Pain" Associated Symptoms: Nausea, Vomiting, Diarrhea. denies: Fever, Chills, Urinary Symptoms Past Medical History Reviewed: Historical Data, Nursing Documentation, Vital Signs Vital Signs: Last Vital Signs Temp 98.4 F 03/07/18 06:10 Pulse 60 03/07/18 06:10 Resp 18 03/07/18 06:10 BP 106/73 03/07/18 06:10 Pulse Ox 94 L 03/08/18 02:20 - Medical History PMH: Anxiety, Arthritis, Asthma, Back Problems (spinal stenosis), Depression, Gall Bladder Disease (removed GB 2004), Pancreatitis (Dx 3 yrs ago), Pneumonia, Rheumatoid Arthritis Denies: CHF, Colonic Polyps, COPD, Diabetes, Fractures, Hepatitis, HIV, HTN, Hypercholesterolemia, Hypothyroidism, Chronic Kidney Disease, Seizures, Sexually Transmitted Disease Surgical History: Cholecystectomy (2004), Endoscopy Denies: Pacemaker - [facility] Procedures DILATION OF PANCREATIC DUCT WITH INTRALUMINAL DEVICE, ENDO (08/01/16) EXCISION OF STOMACH, ENDO, DIAGN (10/28/15) GROUP PSYCHOTHERAPY (01/16/18) INDIVIDUAL PSYCHOTHERAPY, SUPPORTIVE (01/16/18) INSPECTION OF UPPER INTESTINAL TRACT, ENDO (08/01/16) MEDICATION MANAGEMENT (01/16/18) ULTRASONOGRAPHY OF HEPATOBILIARY SYSTEM, ALL (08/01/16) Family History: States: Unknown Family Hx - Social History Hx Tobacco Use: Yes Hx Alcohol Use: No Hx Substance Use: Yes (MJ last use 01/22, Cocaine last use 01/12) - Immunization History Hx Tetanus Toxoid Vaccination: No Hx Influenza Vaccination: Yes (2018) Hx Pneumococcal Vaccination: Yes Review Of Systems Constitutional: Negative for: Fever, Chills Cardiovascular: Negative for: Chest Pain, Palpitations Respiratory: Negative for: Cough, Shortness of Breath Gastrointestinal: Positive for: Nausea, Vomiting, Abdominal Pain, Diarrhea Genitourinary: Negative for: Dysuria, Frequency Skin: Negative for: Rash Neurological: Negative for: Weakness, Numbness Physical Exam - Physical Exam Appears: Non-toxic, No Acute Distress (lying comfortably on stretcher. using phone. ) Skin: Warm, Dry Head: Atraumatic, Normacephalic Eye(s): bilateral: Normal Inspection Oral Mucosa: Moist Neck: Supple Chest: Symmetrical, No Deformity, No Tenderness Cardiovascular: Rhythm Regular, No Murmur Respiratory: No Decreased Breath Sounds, No Accessory Muscle Use, No Rales, No Rhonchi, No Wheezing Gastrointestinal/Abdominal: Bowel Sounds, Soft, Tenderness (mild, epigastric), No Mass, No Distention, No Guarding, No Rebound, No Ascites Back: No CVA Tenderness Extremity: No Tenderness, No Pedal Edema Neurological/Psych: Oriented x3, Normal Speech, Normal Cognition ED Course And Treatment - Laboratory Results Result Diagrams: 03/07/18 03:25 03/07/18 02:41 O2 Sat by Pulse Oximetry: 94 Medical Decision Making Medical Decision Makin42 y/o male with epigastric pain that feels like prior episodes of pancreatitis with n/v/d. Plan: labs, ivf, zofran. ivf, ua uds, re-eval. 0527 pt resting comfortably all evening. no episodes vomiting while in ed. absomen soft, nd, nt on re-exam. pt reports protonix helped, not taking at home any longer as he ran out. lipase markedly lower in ed today compared to prior admissions. will d/c pt with pancreatic enzyme and protonix, clinic and gi outpt f/u Disposition Counseled Patient/Family Regarding: Studies Performed, Diagnosis, Need For Followup, Rx Given, Smoking Cessation - Disposition Referrals: [facility] [Outside] Monroe Valenzuela [Staff Provider] - Disposition: HOME/ ROUTINE Disposition Time: 06:12 Condition: IMPROVED Additional Instructions: Please take medications as prescribed. Please follow up in medical clinic and with Dr Valenzuela- ramp jockey: call for appointments. Return to ER for any worse pain, persistent vomiting, fever, or any other concerns. Please do not use illicit drugs. Prescriptions: Amylase/Lipase/Protease [Pancrease [id number] U] 1 tab PO DAILY #30 ecc Pantoprazole Sodium [Protonix] 40 mg PO DAILY #30 ect Instructions: Pancreatitis (DC), Polysubstance Abuse (DC) Forms: [facility] (Yi), General Discharge Instructions - Clinical Impression Clinical Impression: Pancreatitis, Polysubstance abuse
[2018-03-07] MEDS ORDERED: Sodium Chloride 0.9% 1,000 ML IV ONE (01:20)
[2018-03-07 02:59] LABS: AMYLASE 171 U/L (30-110); CALCIUM 9.1 mg/dl (8.6-10.4); GFR AFRICAN-AMERICAN > 60; GFR NON-AFRICAN AMERICAN > 60; LIPASE 377 U/L (23-300)
[2018-03-07 03:06] LABS: ALBUMIN 3.5 g/dL (3.5-5.0); ALT/SGPT 10 U/L (21-72); AST/SGOT 34 U/L (17-59); BLOOD UREA NITROGEN 12 mg/dL (9-20)
[2018-03-07 03:28] LABS: BASO % 0.5 % (0.0-2.0); EOS # 0.4 K/uL (0.0-0.7); EOS % 4.3 % (0.0-4.0); HEMOGLOBIN 14.7 g/dL (12.0-18.0); LYMPH # 3.2 K/uL (1.0-4.3); LYMPH % 32.6 % (20.0-40.0); MEAN CELL VOLUME 90.5 fL (80.0-94.0); MEAN CORPUSCULAR HEMOGLOBIN 30.8 pg (27.0-31.0); MEAN PLATELET VOLUME 7.4 fL (7.2-11.7); MONO # 0.6 K/uL (0.0-0.8); MONO % 6.5 % (0.0-10.0); NEUT # 5.5 K/uL (1.8-7.0); NEUT % 56.1 % (50.0-75.0); NRBC % 0.1 % (0.0-2.0); RBC 4.76 Mil/uL (4.40-5.90); RED CELL DISTRIBUTION WIDTH 13.9 % (11.5-14.5); WHITE BLOOD COUNT 9.7 K/uL (4.8-10.8)
[2018-03-07 05:03] LABS: URINE BILIRUBIN NEGATIVE (NEGATIVE); URINE BLOOD NEGATIVE (NEGATIVE); URINE CLARITY Clear (Clear); URINE COLOR Yellow (YELLOW); URINE GLUCOSE (UA) NORMAL (Normal); URINE LEUKOCYTE ESTERASE NEG Leu/uL (Negative); URINE PROTEIN NEGATIVE (NEGATIVE)
[2018-03-07 06:12] VITALS: BP 106/73; PULSE 60; TEMP 98.4
[2018-03-07 06:14] LABS: BARBITURATES, UR NEGATIVE (NEGATIVE); BENZODIAZEPINES, UR NEGATIVE (NEGATIVE); OPIATES, UR NEGATIVE (NEGATIVE); PHENCYCLIDINE, UR NEGATIVE (NEGATIVE)
[2018-03-07 06:17] VITALS: O2SAT 94
== END 2018-03-07 06:37 | disposition home or self-care (01) ==
LOC: C.ER 00:49
DX: K85.90 Acute pancreatitis without necrosis or infection, unspecified (principal); F19.10 Other psychoactive substance abuse, uncomplicated
CPT/HCPCS: 36415; 80053; 80324; 80345; 80346; 80349; 80353; 80358; 80361; 81001; 82150; 83690; 83992; 85025; 96374; 99285; C9113; J7030